=== PATIENT | female | born 1960 | race Caucasian/White ===

== ENCOUNTER → 2016-11-04 | Outpatient (CLI) | payer MEDICARE, MEDICAID ==
[~2016-11-04] MED LIST: ACET-789 PO; ACIDOPHILUS100 MG PO; AMAN100T PO; ASCO500C14 PO; BACL10TA PO; CALC-656 PO; CIPR500T78 PO; DIVA125C3 PO; LACT1CAP15 PO; LEVO125T6 PO; LEVO50TA63 PO; MELA1TAB11 PO; MELA1TAB27 PO; MELO-195 PO; MIRT45TA5 PO; MULT-974 PO; NCT21TD TD; OMEP40CA36 PO; OXYB5TAB9 PO; POLY17PO23 PO; POLYETHYLENE GLYCOL; POLYETHYLENE GLYCOL PO; SENN1TAB6 PO; SENNA PLUS PO; SERT100T8 PO; TRAM50TA2 PO; TYLENOL #3 PO; ZINC220C9 PO; [UNRECOGNIZED DRUG - CODE] PO
[2016-11-04 21:02] LABS: BILIRUBIN,URINE NEGATIVE (NEGATIVE); KETONES,URINE 2+ (NEGATIVE); LEUKOCYTE ESTERASE ,URINE 3+ (NEGATIVE); NITRITE,URINE NEGATIVE (NEGATIVE); PH,URINE 7 (5-9); PROTEIN,URINE 1+ (NEGATIVE); UROBILINOGEN,URINE NORMAL (NORMAL)
[2016-11-04 21:15] LABS: WBC,URINE 50-100 /HPF
== END ==
PROVIDERS: ATTEND Family Medicine
DX: R82.99 Other abnormal findings in urine (principal)
CPT/HCPCS: 81000; 87077; 87088; 87186

== ENCOUNTER → 2017-12-12 | Outpatient (CLI) | payer MEDICARE, MEDICAID ==
--- NOTE | 2017-12-12 12:59 | Diagnostic Imaging Report ---
PROCEDURE: CT cervical spine without contrast. TECHNIQUE: Multiple contiguous axial images were obtained through the cervical spine without the use of intravenous contrast. Sagittal and coronal reformations were then performed. INDICATION: Cervical spine fusion. No prior studies are available for comparison. There is some straightening of the normal cervical lordotic curvature. There is mild anterolisthesis of C3 on C4 with minimal retrolisthesis of C4 on C5. Severe multilevel degenerative disc disease is identified. There is disc space narrowing at all levels and marked osteophyte formation. There is osseous fusion involving the facets at C3-C4 level on the right. There is posterior instrumented fusion with vertical stabilization rods and posterior element screws extending from C5-T1. The hardware appears to be intact without fracture or loosening. There is an osseous density in the left paramidline location C3-C4, consistent with an osteophyte or ossified disc. No significant bony spinal canal stenosis is identified. The prevertebral tissues are normal. No bony fracture seen. Odontoid is intact. IMPRESSION: Severe cervical spondylosis. There are postsurgical changes, posterior instrumented fusion from C5 through T1. No hardware fracture or loosening is seen. No acute bony abnormality is detected. Dictated by: Dictated on workstation # [id number]
== END ==
LOC: RAD 12:07
PROVIDERS: ATTEND Neurological Surgery
DX: M47.812 Spondylosis without myelopathy or radiculopathy, cervical region (principal); Z98.1 Arthrodesis status
CPT/HCPCS: 72125

== ENCOUNTER → 2018-05-02 | Outpatient (CLI) | payer MEDICARE, MEDICAID ==
[~2018-05-02] MED LIST changes: +ACET325C PO; +ACET325T49 PO; +ALBU2.5V4 IH; +AMAN100C18 PO; +ARGI1POW4 PO; +ASCO500T7 PO; +CALC1CAP21 PO; +CIPR-225 PO; +CLOB15CR3 TP; +DIVA125T32 PO; +DOCU-143 PO; +ESCI20TA PO; +HYDR-3812 PO; +LACT1CAP62 PO; +LACT1CAP72 PO; +LACT1CAP76 PO; +LEVO50TA6 PO; +MAGN800O PO; +MELO15TA39 PO; +METR500T PO; +MULT-35 PO; +OXYB10TA6 PO; +POLY17PO6 PO; +SALI45SP MM; +SENN-120 PO; +ZINC220C7 PO
== END ==
LOC: WOUNDCARE 09:15
PROVIDERS: ATTEND Nurse Practitioner
DX: L89.159 Pressure ulcer of sacral region, unspecified stage (principal)
CPT/HCPCS: 99213

== ENCOUNTER 2018-05-03 09:22 | Outpatient (CLI) | payer MEDICARE, MEDICAID ==
[~2018-05-03] VITALS: Ht 162.6 cm; Wt 54.5 kg
[~2018-05-03 09:22] MED LIST changes: -ACET325C PO; -ACET325T49 PO; -ALBU2.5V4 IH; -AMAN100C18 PO; -ARGI1POW4 PO; -ASCO500T7 PO; -CALC1CAP21 PO; -CIPR-225 PO; -CLOB15CR3 TP; -DIVA125T32 PO; -DOCU-143 PO; -ESCI20TA PO; -HYDR-3812 PO; -LACT1CAP62 PO; -LACT1CAP72 PO; -LACT1CAP76 PO; -LEVO50TA6 PO; -MAGN800O PO; -MELO15TA39 PO; -METR500T PO; -MULT-35 PO; -OXYB10TA6 PO; -POLY17PO6 PO; -SALI45SP MM; -SENN-120 PO; -ZINC220C7 PO
[2018-05-03] MEDS ORDERED: LACT1CAP62 PO (13:07)
[2018-05-03] MEDS ORDERED: LACT1CAP76 PO (13:07)
[2018-05-03] MEDS ORDERED: LEVO50TA6 PO (13:07)
[2018-05-03] MEDS ORDERED: HYDR-3812 PO (13:07)
[2018-05-03] MEDS ORDERED: POLY17PO6 PO (13:07)
[2018-05-03] MEDS ORDERED: CLOB15CR3 TP (13:07)
[2018-05-03] MEDS ORDERED: ESCI20TA PO (13:07)
[2018-05-03] MEDS ORDERED: ASCO500T7 PO (13:07)
[2018-05-03] MEDS ORDERED: MELO15TA39 PO (13:07)
[2018-05-03] MEDS ORDERED: SALI45SP MM (13:07)
[2018-05-03] MEDS ORDERED: ZINC220C7 PO (13:07)
[2018-05-03] MEDS ORDERED: ACET325T49 PO (13:07)
[2018-05-03] MEDS ORDERED: MAGN800O PO (13:07)
[2018-05-03] MEDS ORDERED: DIVA125T32 PO (13:07)
[2018-05-03] MEDS ORDERED: LACT1CAP72 PO (13:07)
[2018-05-03] MEDS ORDERED: MULT-35 PO (13:07)
[2018-05-03] MEDS ORDERED: ARGI1POW4 PO (13:07)
[2018-05-03] MEDS ORDERED: SENN-120 PO (13:07)
[2018-05-03] MEDS ORDERED: DOCU-143 PO ×2 (13:07)
[2018-05-03] MEDS ORDERED: ACET325C PO (13:07)
[2018-05-03] MEDS ORDERED: AMAN100C18 PO (13:07)
[2018-05-03] MEDS ORDERED: CALC1CAP21 PO (13:07)
[2018-05-03] MEDS ORDERED: OMEP40CA36 PO (13:07)
[2018-05-03] MEDS ORDERED: OXYB10TA6 PO (13:07)
[2018-05-03] MEDS ORDERED: ALBU2.5V4 IH (13:07)
[2018-05-04] MEDS ORDERED: CIPR-225 PO (14:55)
[2018-05-04] MEDS ORDERED: METR500T PO (14:55)
== END 2018-05-03 13:18 | disposition home or self-care (01) ==
LOC: PREOP 09:22
PROVIDERS: ATTEND Surgery
DX: Z01.818 Encounter for other preprocedural examination (principal)

== ENCOUNTER 2018-05-04 10:09 | Day surgery (SDC) | payer MEDICARE, MEDICAID ==
[~2018-05-04] VITALS: Ht 162.6 cm; Wt 54.5 kg
[~2018-05-04 10:09] MED LIST changes: +ACET325C PO; +ACET325T49 PO; +ALBU2.5V4 IH; +AMAN100C18 PO; +ARGI1POW4 PO; +ASCO500T7 PO; +CALC1CAP21 PO; +CLOB15CR3 TP; +DIVA125T32 PO; +DOCU-143 PO; +ESCI20TA PO; +HYDR-3812 PO; +LACT1CAP62 PO; +LACT1CAP72 PO; +LACT1CAP76 PO; +LEVO50TA6 PO; +MAGN800O PO; +MELO15TA39 PO; +MULT-35 PO; +OXYB10TA6 PO; +POLY17PO6 PO; +SALI45SP MM; +SENN-120 PO; +ZINC220C7 PO
--- OUTSIDE RECORDS SUMMARY | 2018-05-04 10:14 | XMS REPORT | Clinical Summary ---
Author Author [facility] Organization [facility] Address Unknown Phone Unavailable Care Team Providers Care Front End Software Developer Name Role Phone Self, Referral PCP Unavailable Layla Whitfield MD Unavailable Source Comments Some departments are not documenting in the electronic medical record. If you do not see the information that you expected, contact Release of Information in the Health Information Management department at [phone] for further assistance in locating additional records.[facility] Allergies No Known Allergies Current Medications Prescription Sig. Disp. Refills Start End Date Status Date levothyroxine (SYNTHROID) Take 50 mcg by mouth Active 50 mcg tabletIndications: daily. Indications: hypothyroidism HYPOTHYROIDISM LACTOBACILLUS ACIDOPHILUS Take by mouth daily. Active (ACIDOPHILUS PO) amantadine HCl Take 100 mg by mouth Active (SYMMETREL) 100 mg twice daily. capsule meloxicam (MOBIC) 7.5 mg Take 15 mg by mouth Active tabletIndications: muscle daily. Indications: spasms, spinal injuries muscle spasms, spinal injuries omeprazole DR(+) Take 40 mg by mouth Active (PRILOSEC) 40 mg daily. Indications: capsuleIndications: GASTROESOPHAGEAL REFLUX gastroesophageal reflux disease CALCIUM CARBONATE/VITAMIN Take by mouth daily. Active D2 (CALCIUM + VITAMIN D PO) polyethylene glycol 3350 Take 17 g by mouth daily. Active (GLYCOLAX; MIRALAX) 17 Indications: CONSTIPATION gram/dose powderIndications: constipation escitalopram oxalate Take 20 mg by mouth Active (LEXAPRO) 20 mg daily. Indications: tabletIndications: ANXIETY WITH DEPRESSION Anxiety with Depression traMADol (ULTRAM) 50 mg Take 50 mg by mouth every Active tabletIndications: Pain 6 hours as needed for Pain. Indications: PAIN divalproex (DEPAKOTE Take 125 mg by mouth Active SPRINKLE) 125 mg three times daily. capsuleIndications: Indications: depression depression and behaviors and behaviors mirtazapine (REMERON) 45 Take 45 mg by mouth at Active mg tabletIndications: bedtime daily. sleep Indications: sleep senna/docusate Take 1 Tab by mouth Active (SENOKOT-S) 8.6/50 mg daily. Indications: tabletIndications: CONSTIPATION constipation oxybutynin XL (DITROPAN Take 10 mg by mouth Active XL) 10 mg daily. 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 She previously had a suprapubic tube; this was removed in 2011 after she began to void regularly through her urethra. However, SPT site opened in 2012 and continues to drain. PVR was elevated at 230 mls today and persistent bladder distention is likely cause of persistence of spt tract. However, we will need to rule out a foreign body or any other abnormalities to explain persistent opening. 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 Overview: Neurogenic bladder secondary to SCI in 2010, previously managed with SP tube SP tube removed in 2011, site reopened and began to drain urine in 2012 CT cystogram showed channel connecting bladder to anterior abdominal wall, which filled with contrast L ast Assessment & Plan: - See plan for neurogenic bladder Social History Tobacco Use Types Packs/Day Years Used Date Current Every Day Smoker Cigarettes Tobacco Cessation: Ready to Quit: No; Counseling Given: Yes Alcohol Use Drinks/Week oz/Week Comments No 0 Standard 0.0 past abuse states quit 2010 drinks or equivalent Sex Assigned at Date Recorded Not on file Last Filed Vital Signs Vital Sign Reading Time Taken Blood Pressure 116/70 12/15/2015 4:11 PM CDT Pulse 72 12/15/2015 4:11 PM CDT Temperature - - Respiratory Rate 16 12/15/2015 4:11 PM CDT Oxygen Saturation - - Inhaled Oxygen - - Concentration Weight 68 kg (150 lb) 12/15/2015 4:11 PM CDT Height 162.6 cm (5' 4") 12/15/2015 4:11 PM CDT Body Mass Index 25.75 12/15/2015 4:11 PM CDT Plan of Treatment Health Maintenance Due Date Last Done Comments HEPATITIS C SCREENING 1962 PHYSICAL (COMPREHENSIVE) 1969 EXAM PERTUSSIS VACCINE 1973 HIV SCREENING 1977 TETANUS VACCINE 10/14/1979 CERVICAL CANCER SCREENING 1992 BREAST CANCER SCREENING 2002 COLORECTAL CANCER 2012 SCREENING SHINGLES RECOMBINANT 2012 VACCINE (1 of 2) INFLUENZA VACCINE 02/22/2018 Results Not on filefrom Last 3 Months
[2018-05-04 10:15] VITALS: BP 130/95
--- OUTSIDE RECORDS SUMMARY | 2018-05-04 10:15 | XMS REPORT ---
Author Author Ender Gutierrez Organization [facility] Address [address] [place], [place] [id number] Care Team Providers Care Junior Systems Engineer Name Role Phone Ender Gutierrez PCP Allergies and Adverse Reactions Name Reaction Notes NO KNOWN DRUG ALLERGIES Plan of Treatment Not available. Medications Active Name Start Date Estimated Completion Date SIG Comments levothyroxine 50 mcg oral tablet take 1 tablet (50 mcg) by oral route once daily Acidophilus oral capsule take 1 capsule by oral route daily meloxicam 15 mg oral tablet take 1 tablet (15 mg) by oral route once daily omeprazole 40 mg oral capsule,delayed release(DR/EC) take 1 capsule (40 mg) by oral route once daily before a meal in combination with clarithromycin oxybutynin chloride 5 mg oral tablet take 1 tablet by oral route daily Calcium 500 + D 500 mg(1,250mg) -200 unit oral tablet take 1 tablet by oral route daily sertraline 100 mg oral tablet take 1 tablet (100 mg) by oral route once daily Depakote 125 mg oral tablet,delayed release (DR/EC) take 1 tablet (125 mg) by oral route 3 times per day Tylenol Extra Strength 500 mg oral tablet take 2 tablets (1,000 mg) by oral route every 6 hours as needed melatonin 5 mg oral tablet take 1 tablet by oral route once a day (at bedtime) tramadol 50 mg oral tablet take 1 tablet by oral route 2 times a day as needed Lioresal 500 mcg/mL intrathecal solution 04/24/2018 06/23/2018 Pump refill for simple continuous infusion at 310.34 mcg/day for intrathecal use only for 60 days Problem List Description Status Onset 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 Vital Signs Date Time BP-Sys(mm[Hg] BP-Laury(mm[Hg]) HR(bpm) RR(rpm) Temp WT HT HC BMI BSA BMI Percentile O2 Sat(%) 05/04/2018 8:37:00 AM 120 mmHg 60 mmHg 82 bpm 98.1 F 64 in 95 % 03/16/2018 9:20:00 AM 126 mmHg 68 mmHg 57 bpm 97.5 F 117 lbs 64 in 20.08 kg/m2 1.55 m2 97 % 12/01/2017 2:27:00 PM 118 mmHg 64 mmHg 58 bpm 98.1 F 111 lbs 64 in 19.0529 kg/m 1.5078 m 96 % 09/29/2017 10:40:00 AM 130 mmHg 60 mmHg 80 bpm 97.8 F 64 in 95 % 08/03/2017 4:35:00 PM 122 mmHg 64 mmHg 68 bpm 96 F 96 % 06/08/2017 10:05:00 AM 122 mmHg 72 mmHg 59 bpm 18 rpm 96.4 F 97 % 04/14/2017 1:18:00 PM 90 mmHg 60 mmHg 66 bpm 20 rpm 97.3 F 97 % 02/24/2017 10:53:00 AM 126 mmHg 78 mmHg 84 bpm 18 rpm 97.2 F 96 % 12/27/2016 9:51:00 AM 126 mmHg 72 mmHg 73 bpm 17 rpm 97.8 F 95 % 10/28/2016 11:32:00 AM 118 mmHg 64 mmHg 73 bpm 12 rpm 97.3 F 95 % 09/23/2016 11:25:00 AM 112 mmHg 80 mmHg 72 bpm 14 rpm 96.7 F 98 % 07/29/2016 11:03:00 AM 128 mmHg 64 mmHg 86 bpm 14 rpm 97.1 F 96 % 06/10/2016 11:42:00 AM 132 mmHg 68 mmHg 76 bpm 14 rpm 97.5 F 95 % 04/22/2016 11:25:00 AM 132 mmHg 76 mmHg 95 bpm 16 rpm 97 F 96 % 02/26/2016 3:14:00 PM 130 mmHg 78 mmHg 70 bpm 14 rpm 97.3 F 95 % 01/15/2016 9:58:00 AM 124 mmHg 76 mmHg 84 bpm 20 rpm 97.5 F 98 % 11/20/2015 10:12:00 AM 132 mmHg 78 mmHg 80 bpm 20 rpm 97.9 F 97 % 09/25/2015 10:54:00 AM 102 mmHg 52 mmHg 78 bpm 16 rpm 97.1 F 07/31/2015 1:21:00 PM 114 mmHg 62 mmHg 76 bpm 16 rpm 98.3 F 06/03/2015 10:52:00 AM 132 mmHg 78 mmHg 76 bpm 18 rpm 97.4 F 145 lbs 64 in 24.8889 kg/m 1.7234 m 04/08/2015 10:20:00 AM 108 mmHg 64 mmHg 84 bpm 16 rpm 97.6 F 145 lbs 64 in 24.89 kg/m2 1.72 m2 02/11/2015 11:30:00 AM 104 mmHg 68 mmHg 18 rpm 97.5 F 140 lbs 64.5 in 23.6596 kg/m 1.7 m 12/17/2014 9:24:00 AM 120 mmHg 76 mmHg 65 bpm 18 rpm 96 F 125 lbs 64 in 21.46 kg/m2 1.60 m2 10/18/2014 10:32:00 AM 114 mmHg 62 mmHg 74 bpm 16 rpm 97.5 F 08/23/2014 9:58:00 AM 122 mmHg 70 mmHg 76 bpm 16 rpm 97.2 F 08/15/2014 1:37:00 PM 104 mmHg 64 mmHg 78 bpm 18 rpm 97.4 F 145 lbs 64 in 24.8889 kg/m 1.7234 m Social History Name Description Comments Alcohol Never Tobacco Current every day smoker History of Procedures Date Ordered Description Order Status 06/03/2015 12:00 AM ANL SP INF DIRECTOR MEDICAID W/MDREPRG&AYSHA Reviewed 06/03/2015 12:00 AM Baclofen, 10 Mg [facility]# [address]-03 Reviewed 07/31/2015 12:00 AM ANL SP INF DIRECTOR MEDICAID W/MDREPRG&AYSHA Reviewed 07/31/2015 12:00 AM Baclofen, 10 Mg [facility]# [address]-98 Reviewed 09/25/2015 12:00 AM ANL SP INF DIRECTOR MEDICAID W/MDREPRG&AYSHA Reviewed 04/14/2017 12:00 AM MRI UPPER EXTREMITY W/O DYE Returned 04/14/2017 12:00 AM ANL SP INF DIRECTOR MEDICAID W/MDREPRG&AYSHA Reviewed 06/08/2017 12:00 AM ANL SP INF DIRECTOR MEDICAID W/MDREPRG&AYSHA Reviewed 08/03/2017 12:00 AM ANL SP INF DIRECTOR MEDICAID W/MDREPRG&AYSHA Reviewed 09/29/2017 12:00 AM ANL SP INF DIRECTOR MEDICAID W/MDREPRG&AYSHA Reviewed 12/01/2017 12:00 AM ANL SP INF DIRECTOR MEDICAID W/MDREPRG&AYSHA Reviewed 03/16/2018 12:00 AM ANL SP INF DIRECTOR MEDICAID W/MDREPRG&AYSHA Reviewed 02/11/2015 12:00 AM ANL SP INF DIRECTOR MEDICAID W/MDREPRG&AYSHA Reviewed 02/11/2015 12:00 AM Baclofen, 10 Mg [facility] [place]# [address]-66 Reviewed Results Summary Not available. History Of Immunizations Not available. History of Past Illness Name Date of Onset Comments Paraplegia Spasticity of cerebral origin 08/23/2014 Spastic quadriplegia 08/23/2014 Late effect of intracranial injury 08/23/2014 Spasticity of cerebral origin Aug 23 2014 10:01AM Spastic quadriplegia Aug 23 2014 10:01AM Late effect of intracranial injury Aug 23 2014 10:01AM Spasticity of cerebral origin Oct 18 2014 10:34AM Spastic quadriplegia Oct 18 2014 10:34AM Late effect of intracranial injury Oct 18 2014 10:34AM Spasticity of cerebral origin Dec 17 2014 9:26AM Spastic quadriplegia Dec 17 2014 9:26AM Late effect of intracranial injury Dec 17 2014 9:26AM Spasticity of cerebral origin Feb 11 2015 11:30AM Spastic quadriplegia Feb 11 2015 11:30AM Late effect of intracranial injury Feb 11 2015 11:30AM Spasticity of cerebral origin Apr 08 2015 10:26AM Spastic quadriplegia Apr 08 2015 10:26AM Late effect of intracranial injury Apr 08 2015 10:26AM Spastic quadriplegia Jun 03 2015 10:53AM Late effect of intracranial injury Jun 03 2015 10:53AM Spastic quadriplegia Jul 31 2015 1:22PM Late effect of intracranial injury Jul 31 2015 1:22PM Spastic quadriplegia Sep 25 2015 10:56AM Late effect of intracranial injury Sep 25 2015 10:56AM Spastic quadriplegia Nov 20 2015 10:12AM Late effect of intracranial injury Nov 20 2015 10:12AM Spastic quadriplegia Jan 15 2016 9:58AM Late effect of intracranial injury Jan 15 2016 9:58AM Spastic quadriplegia Feb 26 2016 3:16PM Late effect of intracranial injury Feb 26 2016 3:16PM Spastic quadriplegia Apr 22 2016 11:27AM Late effect of intracranial injury Apr 22 2016 11:27AM Spastic quadriplegia Nov 17 2016 11:44AM Late effect of intracranial injury Jun 10 2016 11:44AM Spastic quadriplegia Jul 29 2016 11:05AM Late effect of intracranial injury Jul 29 2016 11:05AM Spastic quadriplegia Sep 23 2016 11:23AM Late effect of intracranial injury Sep 23 2016 11:23AM H/O traumatic brain injury Aug 15 2014 1:41PM Late effect of intracranial injury Aug 15 2014 1:41PM Spastic quadriplegia Aug 15 2014 1:41PM Spastic quadriplegia Oct 28 2016 10:40AM Late effect of intracranial injury Oct 28 2016 10:40AM Spastic quadriplegia Dec 27 2016 9:41AM Late effect of intracranial injury Dec 27 2016 9:41AM Spastic quadriplegia Feb 24 2017 10:41AM Late effect of intracranial injury Feb 24 2017 10:41AM Biceps muscle strain, right, initial encounter Apr 14 2017 1:21PM Traumatic brain injury Apr 14 2017 1:21PM Spasticity Apr 14 2017 1:21PM Late effect of intracranial injury Jun 08 2017 10:08AM Spastic quadriplegia Jun 08 2017 10:08AM Spasticity of cerebral origin Jun 08 2017 10:08AM Late effect of intracranial injury Aug 03 2017 4:37PM Spastic quadriplegia Aug 03 2017 4:37PM Spasticity of cerebral origin Aug 03 2017 4:37PM Late effect of intracranial injury Sep 29 2017 10:42AM Spastic quadriplegia Sep 29 2017 10:42AM Spasticity of cerebral origin Sep 29 2017 10:42AM Late effect of intracranial injury Dec 01 2017 2:29PM Spastic quadriplegia Dec 01 2017 2:29PM Spasticity of cerebral origin Dec 01 2017 2:29PM Late effect of intracranial injury Mar 16 2018 9:22AM Spastic quadriplegia Mar 16 2018 9:22AM Spasticity of cerebral origin Mar 16 2018 9:22AM Other specified complication of other internal prosthetic devices, implants and grafts, initial encounter Mar 16 2018 9:22AM Pressure ulcer of unspecified site, unspecified stage Mar 16 2018 9:22AM Late effect of intracranial injury May 04 2018 8:39AM Spastic quadriplegia May 04 2018 8:39AM Spasticity of cerebral origin May 04 2018 8:39AM Other specified complication of other internal prosthetic devices, implants and grafts, initial encounter May 04 2018 8:39AM Pressure ulcer of unspecified site, unspecified stage May 04 2018 8:39AM Payers Insurance Name Company Name Plan Name Plan Number Policy Number Policy Group Number Start Date Medicare Part B Medicare [place] [id number] November [facility] [id number] N/A Medicare [facility] Medicare [facility] [id number] N/A [facility] - [facility] [id number] N/A Medicare Part A Medicare - Lab/Xray [id number] N/A History of Encounters Visit Date Visit Type Provider 05/04/2018 Procedures Ender Gutierrez DO 03/16/2018 Procedures Ender Gutierrez DO 12/01/2017 Procedures Ender Gutierrez DO 09/29/2017 Procedures Ender Gutierrez DO 08/03/2017 Procedures Ender Gutierrez DO 06/08/2017 Procedures Ender Gutierrez DO 04/18/2017 Nurse visit Ender Gutierrez DO 04/14/2017 Procedures Ender Gutierrez DO 02/24/2017 Procedures Lala CONWAY 12/27/2016 Procedures Lala ZHANGP 10/28/2016 Procedures Lala ZHANGP 09/23/2016 Procedures Lala ZHANGP 07/29/2016 Procedures Lala ZHANGP 06/10/2016 Procedures Lala ZHANGP 04/22/2016 Procedures Lala ZHANGP 02/26/2016 Procedures Lala ZHANGP 01/15/2016 Procedures Lala ZHANGP 11/20/2015 Procedures Lala ZHANGP 09/25/2015 Procedures Lala ZHANGP 07/31/2015 Procedures Lala ZHANGP 06/03/2015 Procedures Lala ZHANGP 04/08/2015 Procedures Lala ZHANGP 02/11/2015 Procedures Lala ZHANGP 12/17/2014 Procedures Lala ZHANGP 10/18/2014 Procedures Lala ZHANGP 08/23/2014 Procedures Lala ZHANGP 08/15/2014 Office visit Lala CONWAY
--- OUTSIDE RECORDS SUMMARY | 2018-05-04 10:15 | XMS REPORT ---
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 Vital Signs Date Time BP-Sys(mm[Hg] BP-Lauyr(mm[Hg]) HR(bpm) RR(rpm) Temp WT HT HC BMI BSA BMI Percentile O2 Sat(%) 06/08/2017 10:05:00 AM 122 mmHg 72 mmHg [...] rpm 97.4 F 145 lbs 64 in 24.89 kg/m2 1.72 m2 04/08/2015 10:20:00 AM 108 mmHg 64 mmHg 84 bpm 16 rpm 97.6 F 145 lbs 64 in 24.8889 kg/m 1.7234 m 02/11/2015 11:30:00 AM 104 mmHg 68 mmHg 18 rpm 97.5 F 140 lbs 64.5 in 23.66 kg/m2 1.70 m2 12/17/2014 9:24:00 AM 120 mmHg 76 mmHg 65 bpm 18 rpm 96 F 125 lbs 64 in 21.456 kg/m 1.6001 m 10/18/2014 10:32:00 AM 114 mmHg 62 mmHg 74 bpm 16 rpm 97.5 F 08/23/2014 9:58:00 AM 122 mmHg 70 mmHg 76 bpm 16 rpm 97.2 F 08/15/2014 1:37:00 PM 104 mmHg 64 mmHg 78 bpm 18 rpm 97.4 F 145 lbs 64 in 24.89 kg/m2 1.72 m2 Social History Not available. History of Procedures Date Ordered Description Order Status 06/03/2015 12:00 AM ANL SP INF STITCHDOWNS TOE FORMER W/MDREPRG&AYSHA Reviewed 06/03/2015 12:00 AM Baclofen, 10 Mg [facility]# [address]-84 Reviewed 07/31/2015 12:00 AM ANL SP INF STITCHDOWNS TOE FORMER W/MDREPRG&AYSHA Reviewed 07/31/2015 12:00 AM Baclofen, 10 Mg [facility]# [address]-49 Reviewed 09/25/2015 12:00 AM ANL SP INF STITCHDOWNS TOE FORMER W/MDREPRG&AYSHA Reviewed 04/14/2017 12:00 AM MRI UPPER EXTREMITY W/O DYE Returned 04/14/2017 12:00 AM ANL SP INF STITCHDOWNS TOE FORMER W/MDREPRG&AYSHA Reviewed 02/11/2015 12:00 AM ANL SP INF STITCHDOWNS TOE FORMER W/MDREPRG&AYSHA Reviewed 02/11/2015 12:00 AM Baclofen, 10 Mg [facility]# [address]-93 Reviewed Results Summary Not available. History Of [...] injury Apr 22 2016 11:27AM Spastic quadriplegia Jun 10 2016 11:44AM Late effect of intracranial injury [...] of cerebral origin Jun 08 2017 10:08AM Payers Insurance Name Company Name Plan Name Plan Number Policy Number Policy Group Number Start Date Medicare Part B Medicare [place] [id number] November [facility] [id number] N/A Medicare [facility] Medicare [facility] [id number] N/A [facility] [id number] N/A Medicare Part A Medicare - Lab/Xray [id number] N/A History of Encounters Visit Date Visit Type Provider 06/08/2017 Procedures [facility] 04/18[facility] 02/24/2017 Procedures Lala CONWAY 12/27/2016 Procedures Lala CONWAY 10/28/2016 Procedures Lala CONWAY 09/23/2016 Procedures Lala CONWAY 07/29/2016 Procedures Lala CONWAY 06/10/2016 Procedures Lala CONWAY 04/22/2016 Procedures Lala CONWAY 02/26/2016 Procedures Lala CONWAY 01/15/2016 Procedures Lala CONWAY 11/20/2015 Procedures Lala ZHANGP 09/25/2015 Procedures Lala ZHANGP 07/31/2015 Procedures Lala CONWAY 06/03/2015 Procedures Lala CONWAY 04/08/2015 Procedures Lala CONWAY 02/11/2015 Procedures Lala CONWAY 12/17/2014 Procedures Lala CONWAY 10/18/2014 Procedures Lala CONWAY 08/23/2014 Procedures Lala CONWAY 08/15/2014 Office visit Lala CONWAY
--- OUTSIDE RECORDS SUMMARY | 2018-05-04 10:15 | XMS REPORT ---
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 Vital Signs Date Time BP-Sys(mm[Hg] BP-Laury(mm[Hg]) HR(bpm) RR(rpm) Temp WT HT HC BMI BSA BMI Percentile O2 Sat(%) 03/16/2018 9:20:00 AM 126 mmHg 68 mmHg 57 bpm 97.5 F 117 lbs 64 in 20.0828 kg/m 1.548 m 97 % 12/01/2017 2:27:00 PM 118 mmHg 64 mmHg 58 bpm 98.1 F 111 lbs 64 in 19.05 kg/m2 1.51 m2 96 % 09/29/2017 10:40:00 AM 130 mmHg [...] Status 06/03/2015 12:00 AM ANL SP INF TRUST EVALUATION SUPERVISOR W/MDREPRG&AYSHA Reviewed 06/03/2015 12:00 AM Baclofen, 10 Mg [facility]# [address]-10 Reviewed 07/31/2015 12:00 AM ANL SP INF TRUST EVALUATION SUPERVISOR W/MDREPRG&AYSHA Reviewed 07/31/2015 12:00 AM Baclofen, 10 Mg [facility]# [address]-91 Reviewed 09/25/2015 12:00 AM ANL SP INF TRUST EVALUATION SUPERVISOR W/MDREPRG&AYSHA Reviewed 04/14/2017 12:00 AM MRI UPPER EXTREMITY W/O DYE Returned 04/14/2017 12:00 AM ANL SP INF TRUST EVALUATION SUPERVISOR W/MDREPRG&AYSHA Reviewed 06/08/2017 12:00 AM ANL SP INF TRUST EVALUATION SUPERVISOR W/MDREPRG&AYSHA Reviewed 08/03/2017 12:00 AM ANL SP INF TRUST EVALUATION SUPERVISOR W/MDREPRG&AYSHA Reviewed 09/29/2017 12:00 AM ANL SP INF TRUST EVALUATION SUPERVISOR W/MDREPRG&AYSHA Reviewed 12/01/2017 12:00 AM ANL SP INF TRUST EVALUATION SUPERVISOR W/MDREPRG&AYSHA Reviewed 02/11/2015 12:00 AM ANL SP INF TRUST EVALUATION SUPERVISOR W/MDREPRG&AYSHA Reviewed 02/11/2015 12:00 AM Baclofen, 10 Mg [facility]# [address]-63 Reviewed Results Summary Not available. History Of [...] site, unspecified stage Mar 16 2018 9:22AM Payers Insurance Name Company Name Plan Name Plan Number Policy Number Policy Group Number Start Date Medicare Part B Medicare [place] [id number] November [facility] [id number] N/A Medicare R[facility] Medicare R[facility] [id number] N/A [facility] - [facility] [id number] N/A Medicare Part A Medicare - Lab/Xray [id number] N/A History of Encounters Visit Date Visit Type Provider 03/16/2018 Procedures Ender Gutierrez DO 12/01/2017 Procedures Ender Gutierrez DO 09/29/2017 Procedures Ender Gutierrez DO 08/03/2017 Procedures Ender Gutierrez DO 06/08/2017 Procedures Ender Gutierrez DO 04/18/2017 Nurse visit Ender Gutierrez DO 04/14/2017 Procedures Ender Gutierrez DO 02/24/2017 Procedures Lala CONWAY 12/27/2016 Procedures Lala CONWAY 10/28/2016 Procedures Lala ZHANGP 09/23/2016 Procedures Lala CONWAY 07/29/2016 Procedures Lala CONWAY 06/10/2016 Procedures Lala CONWAY 04/22/2016 Procedures Lala CONWAY 02/26/2016 Procedures Lala CONWAY 01/15/2016 Procedures Lala CONWAY 11/20/2015 Procedures Lala CONWAY 09/25/2015 Procedures Lala CONWAY 07/31/2015 Procedures Lala ZHANGP 06/03/2015 Procedures Lala CONWAY 04/08/2015 Procedures Lala CONWAY 02/11/2015 Procedures Lala CONWAY 12/17/2014 Procedures Lala CONWAY 10/18/2014 Procedures Lala CONWAY 08/23/2014 Procedures Lala CONWAY 08/15/2014 Office visit Lala CONWAY
--- OUTSIDE RECORDS SUMMARY | 2018-05-04 10:16 | XMS REPORT ---
Author Author [facility] Organization [facility] Address [address] [place], [place] [id number] Care Team Providers Care Needle Grinder Name Role Phone PCP Unavailable Allergies and Adverse Reactions Name Reaction Notes NO KNOWN DRUG ALLERGIES Plan of Treatment Not available. Medications Active Name Start Date Estimated Completion Date SIG Comments levothyroxine oral tablet 50 mcg take 1 tablet (50 mcg) by oral route once daily Acidophilus oral capsule take 1 capsule by oral route daily meloxicam oral tablet 15 mg take 1 tablet (15 mg) by oral route once daily omeprazole oral capsule,delayed release(DR/EC) 40 mg take 1 capsule (40 mg) by oral route once daily before a meal in combination with clarithromycin oxybutynin chloride oral tablet 5 mg take 1 tablet by oral route daily Calcium 500 + D oral tablet 500 mg(1,250mg) -200 unit take 1 tablet by oral route daily sertraline oral tablet 100 mg take 1 tablet (100 mg) by oral route once daily Depakote oral tablet,delayed release (DR/EC) 125 mg take 1 tablet (125 mg) by oral route 3 times per day Tylenol Extra Strength oral tablet 500 mg take 2 tablets (1,000 mg) by oral route every 6 hours as needed melatonin oral tablet 5 mg take 1 tablet by oral route once a day (at bedtime) tramadol oral tablet 50 mg take 1 tablet by oral route 2 times a day as needed Lioresal intrathecal solution 500 mcg/mL 12/17/2014 Pump refill for simple continuous infusion at 300.39mcg/day for intrathecal use only Problem List Description Status Onset 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 History of Procedures Not available. Results Summary Not available. History Of Immunizations [...] of intracranial injury Dec 17 2014 9:26AM Payers Insurance Name Company Name Plan Name Plan Number Policy Number Policy Group Number Start Date Medicare Part B Medicare Of [place] [id number] November [facility] [id number] N/A History of Encounters Visit Date Visit Type Provider 12/17/2014 Procedures Lala CONWAY 10/18/2014 Procedures Lala CONWAY 08/23/2014 Procedures Lala CONWAY 08/15/2014 Office visit Lala CONWAY
--- OUTSIDE RECORDS SUMMARY | 2018-05-04 10:16 | XMS REPORT ---
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 Vital Signs Date Time BP-Sys(mm[Hg] BP-Laury(mm[Hg]) HR(bpm) RR(rpm) Temp WT HT HC BMI BSA BMI Percentile O2 Sat(%) 12/01/2017 2:27:00 PM 118 mmHg 64 mmHg [...] Status 06/03/2015 12:00 AM ANL SP INF METAL BOX MAKER W/MDREPRG&AYSHA Reviewed 06/03/2015 12:00 AM Baclofen, 10 Mg [facility]# [address]-49 Reviewed 07/31/2015 12:00 AM ANL SP INF METAL BOX MAKER W/MDREPRG&AYSHA Reviewed 07/31/2015 12:00 AM Baclofen, 10 Mg ND# [address]-24 Reviewed 09/25/2015 12:00 AM ANL SP INF METAL BOX MAKER W/MDREPRG&AYSHA Reviewed 04/14/2017 12:00 AM MRI UPPER EXTREMITY W/O DYE Returned 04/14/2017 12:00 AM ANL SP INF METAL BOX MAKER W/MDREPRG&AYSHA Reviewed 06/08/2017 12:00 AM ANL SP INF METAL BOX MAKER W/MDREPRG&AYSHA Reviewed 08/03/2017 12:00 AM ANL SP INF METAL BOX MAKER W/MDREPRG&AYSHA Reviewed 09/29/2017 12:00 AM ANL SP INF METAL BOX MAKER W/MDREPRG&AYSHA Reviewed 02/11/2015 12:00 AM ANL SP INF METAL BOX MAKER W/MDREPRG&AYSHA Reviewed 02/11/2015 12:00 AM Baclofen, 10 Mg [facility]# [address]-76 Reviewed Results Summary Not available. History Of [...] of cerebral origin Dec 01 2017 2:29PM Payers Insurance Name Company Name Plan Name Plan Number Policy Number Policy Group Number Start Date Medicare Part B Medicare Of [place] [id number] November [facility] [id number] N/A Medicare RHC Medicare RHC [id number] N/A [facility] [id number] N/A Medicare Part A Medicare - Lab/Xray [id number] N/A History of Encounters Visit Date Visit Type Provider 12/01/2017 Procedures Ender Gutierrez DO 09/29/2017 Procedures Ender Gutierrez DO 08/03/2017 Procedures Ender Gutierrez DO 06/08/2017 Procedures Ender Gutierrez DO 04/18/2017 Nurse visit Ender Gutierrez DO 04/14/2017 Procedures Ender Gutierrez DO 02/24/2017 Procedures Lala ZHANGP 12/27/2016 Procedures Lala ZHANGP 10/28/2016 Procedures Lala [...] Procedures Lala ZHANGP 08/15/2014 Office visit Lala ZHANGP
--- OUTSIDE RECORDS SUMMARY | 2018-05-04 10:16 | XMS REPORT ---
Author Author Ender Gutierrez Organization [facility] Address [address] [place], [place] [phone] Care Team Providers Care Service Unit Operator Oil Well Name Role Phone Ender Gutierrez PCP Allergies and Adverse Reactions Name Reaction Notes NO KNOWN DRUG ALLERGIES Plan of Treatment Planned Activity Comments Planned Date Planned Time Plan/Goal MRI UPPER EXT OTH THAN JOINT W/O CONTRAS 04/14/2017 12:00 AM Medications Active Name Start Date Estimated Completion [...] as needed Lioresal 500 mcg/mL intrathecal solution 03/21/2017 Pump refill for simple continuous infusion at 310.34 mcg/day for intrathecal use only Problem List Description Status Onset 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 Vital Signs Date Time BP-Sys(mm[Hg] BP-Laury(mm[Hg]) HR(bpm) RR(rpm) Temp WT HT HC BMI BSA BMI Percentile O2 Sat(%) 04/14/2017 1:18:00 PM 90 mmHg 60 mmHg [...] Status 06/03/2015 12:00 AM ANL SP INF BLOOD BANK LABORATORY PROFESSIONAL W/MDREPRG&AYSHA Reviewed 06/03/2015 12:00 AM Baclofen, 10 Mg [facility]# [address]-40 Reviewed 07/31/2015 12:00 AM ANL SP INF BLOOD BANK LABORATORY PROFESSIONAL W/MDREPRG&AYSHA Reviewed 07/31/2015 12:00 AM Baclofen, 10 Mg NDC# [address]-12 Reviewed 09/25/2015 12:00 AM ANL SP INF BLOOD BANK LABORATORY PROFESSIONAL W/MDREPRG&AYSHA Reviewed 02/11/2015 12:00 AM ANL SP INF BLOOD BANK LABORATORY PROFESSIONAL W/MDREPRG&AYSHA Reviewed 02/11/2015 12:00 AM Baclofen, 10 Mg ND# [address]-90 Reviewed Results Summary Not available. History Of [...] 2017 1:21PM Spasticity Apr 14 2017 1:21PM Payers Insurance Name Company Name Plan Name Plan Number Policy Number Policy Group Number Start Date Medicare Part B Medicare Of [place] [id number] November [facility] [id number] N/A Medicare RHC Medicare RHC [id number] N/A [facility] [id number] N/A Medicare Part A Medicare - Lab/Xray [id number] N/A History of Encounters Visit Date Visit Type Provider 04/14/2017 Procedures Ender Gutierrez DO 02/24/2017 Procedures [...]
--- OUTSIDE RECORDS SUMMARY | 2018-05-04 10:17 | XMS REPORT ---
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 Vital Signs Date Time BP-Sys(mm[Hg] BP-Laury(mm[Hg]) HR(bpm) RR(rpm) Temp WT HT HC BMI BSA BMI Percentile O2 Sat(%) 09/23/2016 11:25:00 AM 112 mmHg 80 mmHg [...] Status 06/03/2015 12:00 AM ANL SP INF ENVIRONMENTAL AIR SPECIALIST W/MDREPRG&AYSHA Reviewed 06/03/2015 12:00 AM Baclofen, 10 Mg [facility]# [address]-33 Reviewed 07/31/2015 12:00 AM ANL SP INF ENVIRONMENTAL AIR SPECIALIST W/MDREPRG&AYSHA Reviewed 07/31/2015 12:00 AM Baclofen, 10 Mg [facility]# [address]-98 Reviewed 09/25/2015 12:00 AM ANL SP INF ENVIRONMENTAL AIR SPECIALIST W/MDREPRG&AYSHA Reviewed 02/11/2015 12:00 AM ANL SP INF ENVIRONMENTAL AIR SPECIALIST W/MDREPRG&AYSHA Reviewed 02/11/2015 12:00 AM Baclofen, 10 Mg [facility]# [address]-03 Reviewed Results Summary Not available. History Of [...] 1:41PM Spastic quadriplegia Aug 15 2014 1:41PM Payers Insurance Name Company Name Plan Name Plan Number Policy Number Policy Group Number Start Date Medicare RHC Medicare RHC [id number] N/A [facility] [id number] N/A Medicare Part A Medicare - Lab/Xray [id number] N/A [facility] [id number] N/A Medicare Part B Medicare Of [place] [id number] November History of Encounters Visit Date Visit Type Provider 09/23/2016 Procedures Lala CONWAY 07/29/2016 Procedures Lala CONWAY 06/10/2016 Procedures Lala CONWAY 04/22/2016 Procedures Lala CONWAY 02/26/2016 Procedures Lala CONWAY 01/15/2016 Procedures Lala CONWAY 11/20/2015 Procedures Lala CONWAY 09/25/2015 Procedures Lala ZHANGP 07/31/2015 Procedures Lala ZHANGP 06/03/2015 Procedures Lala CONWAY 04/08/2015 Procedures Lala CONWAY 02/11/2015 Procedures Lala CONWAY 12/17/2014 Procedures Lala CONWAY 10/18/2014 Procedures Lala CONWAY 08/23/2014 Procedures Lala CONWAY 08/15/2014 Office visit Lala CONWAY
--- OUTSIDE RECORDS SUMMARY | 2018-05-04 10:17 | XMS REPORT ---
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 History Of Immunizations [...] of intracranial injury Apr 08 2015 10:26AM Payers Insurance Name Company Name Plan Name Plan Number Policy Number Policy Group Number Start Date Medicare Part B Medicare Of [place] [id number] November [facility] [id number] N/A History of Encounters Visit Date Visit Type Provider 04/08/2015 Procedures Lala CONWAY 02/11/2015 Procedures Lala CONWAY 12/17/2014 Procedures Lala CONWAY 10/18/2014 Procedures Lala CONWAY 08/23/2014 Procedures Lala CONWAY 08/15/2014 Office visit Lala CONWAY
--- OUTSIDE RECORDS SUMMARY | 2018-05-04 10:17 | XMS REPORT ---
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 Vital Signs Date Time BP-Sys(mm[Hg] BP-Laury(mm[Hg]) HR(bpm) RR(rpm) Temp WT HT HC BMI BSA BMI Percentile O2 Sat(%) 06/10/2016 11:42:00 AM 132 mmHg 68 mmHg [...] Status 06/03/2015 12:00 AM ANL SP INF STEEL WHEEL ENGRAVER W/MDREPRG&AYSHA Reviewed 06/03/2015 12:00 AM Baclofen, 10 Mg [facility]# [address]-47 Reviewed 07/31/2015 12:00 AM ANL SP INF STEEL WHEEL ENGRAVER W/MDREPRG&AYSHA Reviewed 07/31/2015 12:00 AM Baclofen, 10 Mg [facility]# [address]-40 Reviewed 09/25/2015 12:00 AM ANL SP INF STEEL WHEEL ENGRAVER W/MDREPRG&AYSHA Reviewed 02/11/2015 12:00 AM ANL SP INF STEEL WHEEL ENGRAVER W/MDREPRG&AYSHA Returned 02/11/2015 12:00 AM Baclofen, 10 Mg [facility]# [address]-71 Returned Results Summary Not available. History Of [...] of intracranial injury Jun 10 2016 11:44AM Payers Insurance Name Company Name Plan Name Plan Number Policy Number Policy Group Number Start Date Medicare Part B Medicare Of [place] [id number] November [facility] [id number] N/A History of Encounters Visit Date Visit Type Provider 06/10/2016 Procedures Lala CONWAY 04/22/2016 Procedures Lala CONWAY 02/26/2016 Procedures Lala ZHANGP 01/15/2016 Procedures Lala ZHANGP 11/20/2015 Procedures Lala ZHANGP 09/25/2015 Procedures Lala ZHANGP 07/31/2015 Procedures Lala ZHANGP 06/03/2015 Procedures Lala ZHANGP 04/08/2015 Procedures Lala ZHANGP 02/11/2015 Procedures Lala ZHANGP 12/17/2014 Procedures Lala CONWAY 10/18/2014 Procedures Lala ZHANGP 08/23/2014 Procedures Lala ZHANGP 08/15/2014 Office visit Lala CONWAY
--- OUTSIDE RECORDS SUMMARY | 2018-05-04 10:17 | XMS REPORT ---
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 Vital Signs Date Time BP-Sys(mm[Hg] BP-Laury(mm[Hg]) HR(bpm) RR(rpm) Temp WT HT HC BMI BSA BMI Percentile O2 Sat(%) 09/25/2015 10:54:00 AM 102 mmHg 52 mmHg 78 bpm 16 rpm 97.1 F 07/31/2015 1:21:00 PM 114 mmHg 62 mmHg 76 bpm 16 rpm 98.3 F 06/03/2015 10:52:00 AM 132 mmHg 78 mmHg 76 bpm 18 rpm 97.4 F 145 lbs 64 in 24.8889 kg/m 1.72 m2 04/08/2015 10:20:00 AM 108 mmHg 64 mmHg 84 bpm 16 rpm 97.6 F 145 lbs 64 in 24.8889 kg/m 1.7234 m 02/11/2015 11:30:00 AM 104 mmHg 68 mmHg 18 rpm 97.5 F 140 lbs 64.5 in 23.6596 kg/m 1.70 m2 12/17/2014 9:24:00 AM 120 mmHg 76 mmHg 65 bpm 18 rpm 96 F 125 lbs 64 in 21.46 kg/m2 1.6001 m 10/18/2014 10:32:00 AM 114 mmHg [...] Status 06/03/2015 12:00 AM ANL SP INF UPPER AND BOTTOM LACER HAND W/MDREPRG&AYSHA Reviewed 06/03/2015 12:00 AM Baclofen, 10 Mg ND# [address]-80 Reviewed 07/31/2015 12:00 AM ANL SP INF UPPER AND BOTTOM LACER HAND W/MDREPRG&AYSHA Reviewed 07/31/2015 12:00 AM Baclofen, 10 Mg NDC# [address]-82 Reviewed 02/11/2015 12:00 AM ANL SP INF UPPER AND BOTTOM LACER HAND W/MDREPRG&AYSHA Returned 02/11/2015 12:00 AM Baclofen, 10 Mg NDC# [address]-64 Returned Results Summary Not available. History Of [...] of intracranial injury Sep 25 2015 10:56AM Payers Insurance Name Company Name Plan Name Plan Number Policy Number Policy Group Number Start Date Medicare Part B Medicare Of [place] [id number] November [facility] [id number] N/A History of Encounters Visit Date Visit Type Provider 09/25/2015 Procedures Lala CONWAY 07/31/2015 Procedures Lala CONWAY 06/03/2015 Procedures Lala CONWAY 04/08/2015 Procedures Lala CONWAY 02/11/2015 Procedures Lala CONWAY 12/17/2014 Procedures Lala CONWAY 10/18/2014 Procedures Lala CONWAY 08/23/2014 Procedures Lala CONWAY 08/15/2014 Office visit Lala CONWAY
--- OUTSIDE RECORDS SUMMARY | 2018-05-04 10:18 | XMS REPORT ---
Author Author Lala River [facility] Address [address] [place], [place] [address] Care Team Providers Care Carpet Sewing Machine Operator Name Role Phone Lala River PCP Allergies [...] HC BMI BSA BMI Percentile O2 Sat(%) 07/29/2016 11:03:00 AM 128 mmHg 64 mmHg [...] Status 06/03/2015 12:00 AM ANL SP INF PIG MACHINE CRANE OPERATOR W/MDREPRG&AYSHA Reviewed 06/03/2015 12:00 AM Baclofen, 10 Mg [facility]# [address]-26 Reviewed 07/31/2015 12:00 AM ANL SP INF PIG MACHINE CRANE OPERATOR W/MDREPRG&AYSHA Reviewed 07/31/2015 12:00 AM Baclofen, 10 Mg [facility]# [address]-99 Reviewed 09/25/2015 12:00 AM ANL SP INF PIG MACHINE CRANE OPERATOR W/MDREPRG&AYSHA Reviewed 02/11/2015 12:00 AM ANL SP INF PIG MACHINE CRANE OPERATOR W/MDREPRG&AYSHA Reviewed 02/11/2015 12:00 AM Baclofen, 10 Mg [facility]# [address]-29 Reviewed Results Summary Not available. History Of [...] of intracranial injury Jul 29 2016 11:05AM Payers Insurance Name Company Name Plan Name Plan Number Policy Number Policy Group Number Start Date Medicare Part B Medicare Of [place] [id number] November [facility] [id number] N/A History of Encounters Visit Date Visit Type Provider 07/29/2016 Procedures Lala CONWAY 06/10/2016 Procedures Lala CONWAY 04/22/2016 Procedures Lala ZHANGP 02/26/2016 Procedures Lala ZHANGP 01/15/2016 Procedures Lala ZHANGP 11/20/2015 Procedures Lala ZHANGP 09/25/2015 Procedures Lala ZHANGP 07/31/2015 Procedures Lala CONWAY 06/03/2015 Procedures Lala ZHANGP 04/08/2015 Procedures Lala ZHANGP 02/11/2015 Procedures Lala ZHANGP 12/17/2014 Procedures Lala ZHANGP 10/18/2014 Procedures Lala CONWAY 08/23/2014 Procedures Lala ZHANGP 08/15/2014 Office visit Lala CONWAY
--- OUTSIDE RECORDS SUMMARY | 2018-05-04 10:18 | XMS REPORT ---
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 Vital Signs Date Time BP-Sys(mm[Hg] BP-Laury(mm[Hg]) HR(bpm) RR(rpm) Temp WT HT HC BMI BSA BMI Percentile O2 Sat(%) 10/28/2016 11:32:00 AM 118 mmHg 64 mmHg [...] Status 06/03/2015 12:00 AM ANL SP INF POWER GRADER OPERATOR W/MDREPRG&AYSHA Reviewed 06/03/2015 12:00 AM Baclofen, 10 Mg [facility]# [address]-88 Reviewed 07/31/2015 12:00 AM ANL SP INF POWER GRADER OPERATOR W/MDREPRG&AYSHA Reviewed 07/31/2015 12:00 AM Baclofen, 10 Mg [facility]# [address]-23 Reviewed 09/25/2015 12:00 AM ANL SP INF POWER GRADER OPERATOR W/MDREPRG&AYSHA Reviewed 02/11/2015 12:00 AM ANL SP INF POWER GRADER OPERATOR W/MDREPRG&AYSHA Reviewed 02/11/2015 12:00 AM Baclofen, 10 Mg [facility]# [address]-76 Reviewed Results Summary Not available. History Of [...] of intracranial injury Oct 28 2016 10:40AM Payers Insurance Name Company Name Plan Name Plan Number Policy Number Policy Group Number Start Date Medicare RHC Medicare RHC [id number] N/A [facility] [id number] N/A Medicare Part A Medicare - Lab/Xray [id number] N/A [facility] [id number] N/A Medicare Part B Medicare Of [place] [id number] November History of Encounters Visit Date Visit Type Provider 10/28/2016 Procedures Lala CONWAY 09/23/2016 Procedures Lala [...]
--- OUTSIDE RECORDS SUMMARY | 2018-05-04 10:19 | XMS REPORT ---
Author Author Lala River [facility] Address [address] [place], [place] [address] Care Team Providers Care Healthcare Liaison Name Role Phone Lala River PCP Allergies [...] Status 06/03/2015 12:00 AM ANL SP INF MARBLE CLEANER W/MDREPRG&AYSHA Reviewed 06/03/2015 12:00 AM Baclofen, 10 Mg [facility]# [address]-52 Reviewed 07/31/2015 12:00 AM ANL SP INF MARBLE CLEANER W/MDREPRG&AYSHA Reviewed 07/31/2015 12:00 AM Baclofen, 10 Mg [facility]# [address]-65 Reviewed 09/25/2015 12:00 AM ANL SP INF MARBLE CLEANER W/MDREPRG&AYSHA Reviewed 02/11/2015 12:00 AM ANL SP INF MARBLE CLEANER W/MDREPRG&AYSHA Reviewed 02/11/2015 12:00 AM Baclofen, 10 Mg [facility]# [address]-98 Reviewed Results Summary Not available. History Of [...] of intracranial injury Sep 23 2016 11:23AM Payers Insurance Name Company Name Plan Name Plan Number Policy Number Policy Group Number Start Date Medicare [facility] Medicare C [id number] N/A [facility] [id number] N/A Medicare Part A Medicare - Lab/Xray [id number] N/A [facility] [id number] N/A Medicare Part B Medicare Of [place] [id number] November History of Encounters Visit Date Visit Type Provider 09/23/2016 Procedures Lala CONWAY 07/29/2016 Procedures Lala CONWAY 06/10/2016 Procedures Lala CONWAY 04/22/2016 Procedures Lala CONWAY 02/26/2016 Procedures Lala ZHANGP 01/15/2016 Procedures Lala CONWAY 11/20/2015 Procedures Lala CONWAY 09/25/2015 Procedures Lala CONWAY 07/31/2015 Procedures Lala CONWAY 06/03/2015 Procedures Lala CONWAY 04/08/2015 Procedures Lala CONWAY 02/11/2015 Procedures Lala CONWAY 12/17/2014 Procedures Lala CONWAY 10/18/2014 Procedures Lala CONWAY 08/23/2014 Procedures Lala CONWAY 08/15/2014 Office visit Lala CONWAY
--- OUTSIDE RECORDS SUMMARY | 2018-05-04 10:19 | XMS REPORT ---
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 Vital Signs Date Time BP-Sys(mm[Hg] BP-Laury(mm[Hg]) HR(bpm) RR(rpm) Temp WT HT HC BMI BSA BMI Percentile O2 Sat(%) 08/03/2017 4:35:00 PM 122 mmHg 64 mmHg [...] Status 06/03/2015 12:00 AM ANL SP INF WIRELESS STORE MANAGER W/MDREPRG&AYSHA Reviewed 06/03/2015 12:00 AM Baclofen, 10 Mg [facility]# [address]-22 Reviewed 07/31/2015 12:00 AM ANL SP INF WIRELESS STORE MANAGER W/MDREPRG&AYSHA Reviewed 07/31/2015 12:00 AM Baclofen, 10 Mg [facility]# [address]-97 Reviewed 09/25/2015 12:00 AM ANL SP INF WIRELESS STORE MANAGER W/MDREPRG&AYSHA Reviewed 04/14/2017 12:00 AM MRI UPPER EXTREMITY W/O DYE Returned 04/14/2017 12:00 AM ANL SP INF WIRELESS STORE MANAGER W/MDREPRG&AYSHA Reviewed 06/08/2017 12:00 AM ANL SP INF WIRELESS STORE MANAGER W/MDREPRG&AYSHA Reviewed 02/11/2015 12:00 AM ANL SP INF WIRELESS STORE MANAGER W/MDREPRG&AYSHA Reviewed 02/11/2015 12:00 AM Baclofen, 10 Mg [facility]# [address]-64 Reviewed Results Summary Not available. History Of [...] of cerebral origin Aug 03 2017 4:37PM Payers Insurance Name Company Name Plan Name Plan Number Policy Number Policy Group Number Start Date Medicare Part B Medicare Of [place] [id number] November [facility] [id number] N/A Medicare RHC Medicare RHC [id number] N/A [facility] - RHC [id number] N/A Medicare Part A Medicare - Lab/Xray [id number] N/A History of Encounters Visit Date Visit Type Provider 08/03/2017 Procedures Ender Gutierrez DO 06/08/2017 Procedures Ender Gtuierrez DO 04/18/2017 Nurse visit Ender Gutierrez DO 04/14/2017 Procedures Ender Gutierrez DO 02/24/2017 Procedures Lala CONWAY 12/27/2016 Procedures Lala ZHANGP 10/28/2016 Procedures Lala ZHANGP 09/23/2016 Procedures Lala ZHANGP 07/29/2016 Procedures Lala CONWAY 06/10/2016 Procedures Lala ZHANGP 04/22/2016 Procedures Lala CONWAY 02/26/2016 Procedures Lala CONWAY 01/15/2016 Procedures Lala CONWAY 11/20/2015 Procedures Lala CONWAY 09/25/2015 Procedures Lala ZHANGP 07/31/2015 Procedures Lala ZHANGP 06/03/2015 Procedures Lala CONWAY 04/08/2015 Procedures Lala CONWAY 02/11/2015 Procedures Lala CONWAY 12/17/2014 Procedures Lala CONWAY 10/18/2014 Procedures Lala ZHANGP 08/23/2014 Procedures Lala CONWAY 08/15/2014 Office visit Lala CONWAY
--- OUTSIDE RECORDS SUMMARY | 2018-05-04 10:19 | XMS REPORT ---
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 Vital Signs Date Time BP-Sys(mm[Hg] BP-Laury(mm[Hg]) HR(bpm) RR(rpm) Temp WT HT HC BMI BSA BMI Percentile O2 Sat(%) 04/22/2016 11:25:00 AM 132 mmHg 76 mmHg [...] Status 06/03/2015 12:00 AM ANL SP INF DISABILITY REPRESENTATIVE W/MDREPRG&AYSHA Reviewed 06/03/2015 12:00 AM Baclofen, 10 Mg [facility]# [address]-68 Reviewed 07/31/2015 12:00 AM ANL SP INF DISABILITY REPRESENTATIVE W/MDREPRG&AYSHA Reviewed 07/31/2015 12:00 AM Baclofen, 10 Mg [facility]# [address]-77 Reviewed 09/25/2015 12:00 AM ANL SP INF DISABILITY REPRESENTATIVE W/MDREPRG&AYSHA Reviewed 02/11/2015 12:00 AM ANL SP INF DISABILITY REPRESENTATIVE W/MDREPRG&AYSHA Returned 02/11/2015 12:00 AM Baclofen, 10 Mg [facility]# [address]-59 Returned Results Summary Not available. History Of [...] of intracranial injury Apr 22 2016 11:27AM Payers Insurance Name Company Name Plan Name Plan Number Policy Number Policy Group Number Start Date Medicare Part B Medicare [place] [id number] November [facility] [id number] N/A History of Encounters Visit Date Visit Type Provider 04/22/2016 Procedures Lala CONWAY 02/26/2016 Procedures Lala CONWAY 01/15/2016 Procedures Lala CONWAY 11/20/2015 Procedures Lala CONWAY 09/25/2015 Procedures Lala ZHANGP 07/31/2015 Procedures Lala CONWAY 06/03/2015 Procedures Lala CONWAY 04/08/2015 Procedures Lala CONWAY 02/11/2015 Procedures Lala ZHANGP 12/17/2014 Procedures Lala ZHANGP 10/18/2014 Procedures Lala ZHANGP 08/23/2014 Procedures Lala ZHANGP 08/15/2014 Office visit Lala ZHANGP
--- OUTSIDE RECORDS SUMMARY | 2018-05-04 10:20 | XMS REPORT ---
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 Vital Signs Date Time BP-Sys(mm[Hg] BP-Laury(mm[Hg]) HR(bpm) RR(rpm) Temp WT HT HC BMI BSA BMI Percentile O2 Sat(%) 02/24/2017 10:53:00 AM 126 mmHg 78 mmHg [...] Status 06/03/2015 12:00 AM ANL SP INF FREIGHT CAR CLEANER DELTA SYSTEM W/MDREPRG&AYSHA Reviewed 06/03/2015 12:00 AM Baclofen, 10 Mg [place]# [address]-62 Reviewed 07/31/2015 12:00 AM ANL SP INF FREIGHT CAR CLEANER DELTA SYSTEM W/MDREPRG&AYSHA Reviewed 07/31/2015 12:00 AM Baclofen, 10 Mg N[facility]# [address]-33 Reviewed 09/25/2015 12:00 AM ANL SP INF FREIGHT CAR CLEANER DELTA SYSTEM W/MDREPRG&AYSHA Reviewed 02/11/2015 12:00 AM ANL SP INF FREIGHT CAR CLEANER DELTA SYSTEM W/MDREPRG&AYSHA Reviewed 02/11/2015 12:00 AM Baclofen, 10 Mg [facility]# [address]-39 Reviewed Results Summary Not available. History Of [...] of intracranial injury Feb 24 2017 10:41AM Payers Insurance Name Company Name Plan Name Plan Number Policy Number Policy Group Number Start Date Medicare RHC Medicare RHC [id number] N/A [facility] [id number] N/A Medicare Part A Medicare - Lab/Xray [id number] N/A [facility] [id number] N/A Medicare Part B Medicare Of [place] [id number] November History of Encounters Visit Date Visit Type Provider 02/24/2017 Procedures Lala CONWAY 12/27/2016 Procedures Lala [...]
--- OUTSIDE RECORDS SUMMARY | 2018-05-04 10:20 | XMS REPORT ---
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 Vital Signs Date Time BP-Sys(mm[Hg] BP-Laury(mm[Hg]) HR(bpm) RR(rpm) Temp WT HT HC BMI BSA BMI Percentile O2 Sat(%) 11/20/2015 10:12:00 AM 132 mmHg 78 mmHg [...] Status 06/03/2015 12:00 AM ANL SP INF DIRECT SELLING COUNSELOR W/MDREPRG&AYSHA Reviewed 06/03/2015 12:00 AM Baclofen, 10 Mg [facility]# [address]-19 Reviewed 07/31/2015 12:00 AM ANL SP INF DIRECT SELLING COUNSELOR W/MDREPRG&AYSHA Reviewed 07/31/2015 12:00 AM Baclofen, 10 Mg [facility]# [address]-37 Reviewed 09/25/2015 12:00 AM ANL SP INF DIRECT SELLING COUNSELOR W/MDREPRG&AYSHA Reviewed 02/11/2015 12:00 AM ANL SP INF DIRECT SELLING COUNSELOR W/MDREPRG&AYSHA Returned 02/11/2015 12:00 AM Baclofen, 10 Mg [facility]# [address]-28 Returned Results Summary Not available. History Of [...] of intracranial injury Nov 20 2015 10:12AM Payers Insurance Name Company Name Plan Name Plan Number Policy Number Policy Group Number Start Date Medicare Part B Medicare Of [place] [id number] November [facility] [id number] N/A History of Encounters Visit Date Visit Type Provider 11/20/2015 Procedures Lala CONWAY 09/25/2015 Procedures Lala CONWAY 07/31/2015 Procedures Lala CONWAY 06/03/2015 Procedures Lala CONWAY 04/08/2015 Procedures Lala CONWAY 02/11/2015 Procedures Lala CONWAY 12/17/2014 Procedures Lala CONWAY 10/18/2014 Procedures Lala ZHANGP 08/23/2014 Procedures Lala CONWAY 08/15/2014 Office visit Lala CONWAY
--- OUTSIDE RECORDS SUMMARY | 2018-05-04 10:20 | XMS REPORT ---
Author Author Lala River [facility] Address [address] [place], [place] [address] Care Team Providers Care Missile Mechanic Name Role Phone Lala River PCP Allergies [...] Status 06/03/2015 12:00 AM ANL SP INF MORTGAGE LOAN PROCESSING CLERK W/MDREPRG&AYSHA Reviewed 06/03/2015 12:00 AM Baclofen, 10 Mg [facility]# [address]-68 Reviewed 07/31/2015 12:00 AM ANL SP INF MORTGAGE LOAN PROCESSING CLERK W/MDREPRG&AYSHA Reviewed 07/31/2015 12:00 AM Baclofen, 10 Mg [facility]# [address]-71 Reviewed 09/25/2015 12:00 AM ANL SP INF MORTGAGE LOAN PROCESSING CLERK W/MDREPRG&AYSHA Reviewed 02/11/2015 12:00 AM ANL SP INF MORTGAGE LOAN PROCESSING CLERK W/MDREPRG&AYSHA Returned 02/11/2015 12:00 AM Baclofen, 10 Mg [facility]# [address]-76 Returned Results Summary Not available. History Of [...] Date Medicare Part B Medicare [place] [id number] November [facility] [id number] N/A History of Encounters Visit Date Visit [...]
--- OUTSIDE RECORDS SUMMARY | 2018-05-04 10:21 | XMS REPORT ---
Author Author Lala River [facility] Address [address] [place], [place] [address] Care Team Providers Care Labor And Employment Paralegal Name Role Phone Lala River PCP Allergies [...] HC BMI BSA BMI Percentile O2 Sat(%) 07/31/2015 1:21:00 PM 114 mmHg 62 mmHg [...] Status 06/03/2015 12:00 AM ANL SP INF HAND BOOKBINDER W/MDREPRG&AYSHA Reviewed 06/03/2015 12:00 AM Baclofen, 10 Mg ND# [address]-87 Reviewed 02/11/2015 12:00 AM ANL SP INF HAND BOOKBINDER W/MDREPRG&AYSHA Returned 02/11/2015 12:00 AM Baclofen, 10 Mg [facility]# [address]-20 Returned Results Summary Not available. History Of [...] of intracranial injury Jul 31 2015 1:22PM Payers Insurance Name Company Name Plan Name Plan Number Policy Number Policy Group Number Start Date Medicare Part B Medicare Of [place] [id number] November [facility] [id number] N/A History of Encounters Visit Date Visit Type Provider 07/31/2015 Procedures Lala CONWAY 06/03/2015 Procedures Lala CONWAY 04/08/2015 Procedures Lala CONWAY 02/11/2015 Procedures Lala CONWAY 12/17/2014 Procedures Lala CONWAY 10/18/2014 Procedures Lala CONWAY 08/23/2014 Procedures Lala CONWAY 08/15/2014 Office visit Lala CONWAY
--- OUTSIDE RECORDS SUMMARY | 2018-05-04 10:21 | XMS REPORT ---
Author Author Ender Gutierrez Organization [facility] Address [address] [place], [place] [address] Care Team Providers Care Letterpress Printing Machinist Name Role Phone Ender Gutierrez PCP Allergies [...] Status 06/03/2015 12:00 AM ANL SP INF TRY OUT PERSON W/MDREPRG&AYSHA Reviewed 06/03/2015 12:00 AM Baclofen, 10 Mg [facility]# [address]-09 Reviewed 07/31/2015 12:00 AM ANL SP INF TRY OUT PERSON W/MDREPRG&AYSHA Reviewed 07/31/2015 12:00 AM Baclofen, 10 Mg [facility]# [address]-01 Reviewed 09/25/2015 12:00 AM ANL SP INF TRY OUT PERSON W/MDREPRG&AYSHA Reviewed 04/14/2017 12:00 AM MRI UPPER EXTREMITY W/O DYE Returned 04/14/2017 12:00 AM ANL SP INF TRY OUT PERSON W/MDREPRG&AYSHA Reviewed 06/08/2017 12:00 AM ANL SP INF TRY OUT PERSON W/MDREPRG&AYSHA Reviewed 02/11/2015 12:00 AM ANL SP INF TRY OUT PERSON W/MDREPRG&AYSHA Reviewed 02/11/2015 12:00 AM Baclofen, 10 Mg [facility]# [address]-66 Reviewed Results Summary Not available. History Of [...] Date Medicare Part B Medicare Of [place] [id number] November [facility] [id number] N/A Medicare RHC Medicare RHC [id number] N/A [facility] [id number] N/A Medicare Part A Medicare - Lab/Xray [id number] N/A History of Encounters Visit Date Visit Type Provider 06/08/2017 Procedures Ender Gutierrez DO 04/18/2017 Nurse visit Ender Gutierrez DO 04/14/2017 Procedures Ender Gutierrez DO 02/24/2017 Procedures Lala CONWAY 12/27/2016 Procedures Lala CONWAY 10/28/2016 Procedures Lala CONWAY 09/23/2016 Procedures Lala ZHANGP 07/29/2016 Procedures Lala CONWAY 06/10/2016 Procedures Lala CONWAY 04/22/2016 Procedures Lala CONWAY 02/26/2016 Procedures Lala ZHANGP 01/15/2016 Procedures Lala CONWAY 11/20/2015 Procedures Lala ZHANGP 09/25/2015 Procedures Lala ZHANGP 07/31/2015 Procedures Lala ZHANGP 06/03/2015 Procedures Lala ZHANGP 04/08/2015 Procedures Lala CNOWAY 02/11/2015 Procedures Lala CONWAY 12/17/2014 Procedures Lala CONWAY 10/18/2014 Procedures Lala ZHANGP 08/23/2014 Procedures Lala ZHANGP 08/15/2014 Office visit Lala CONWAY
--- OUTSIDE RECORDS SUMMARY | 2018-05-04 10:21 | XMS REPORT ---
Author Author Ender Gutierrez Organization [facility] Address [address] [place], [place] [address] Care Team Providers Care Tilting Saw Operator Name Role Phone Ender Gutierrez PCP Allergies [...] Status 06/03/2015 12:00 AM ANL SP INF ADVENTURE EDUCATION TEACHER W/MDREPRG&AYSHA Reviewed 06/03/2015 12:00 AM Baclofen, 10 Mg [facility]# [address]-81 Reviewed 07/31/2015 12:00 AM ANL SP INF ADVENTURE EDUCATION TEACHER W/MDREPRG&AYSHA Reviewed 07/31/2015 12:00 AM Baclofen, 10 Mg [facility]# [address]-75 Reviewed 09/25/2015 12:00 AM ANL SP INF ADVENTURE EDUCATION TEACHER W/MDREPRG&AYSHA Reviewed 02/11/2015 12:00 AM ANL SP INF ADVENTURE EDUCATION TEACHER W/MDREPRG&AYSHA Reviewed 02/11/2015 12:00 AM Baclofen, 10 Mg ND# [address]-79 Reviewed Results Summary Not available. History Of [...] Date Medicare Part B Medicare Of [place] [id number] November [facility] [id number] N/A Medicare RHC Medicare RHC [id number] N/A [facility] [id number] N/A Medicare Part A Medicare - Lab/Xray [id number] N/A History of Encounters Visit Date Visit Type Provider 04/18/2017 Nurse visit Ender Gutierrez DO 04/14/2017 [...] 06/03/2015 Procedures Lala ZHANGP 04/08/2015 Procedures Lala CONWAY 02/11/2015 Procedures Lala ZHANGP 12/17/2014 Procedures Lala ZHANGP 10/18/2014 Procedures Lala ZHANGP 08/23/2014 Procedures Lala ZHANGP 08/15/2014 Office visit Lala CONWAY
--- OUTSIDE RECORDS SUMMARY | 2018-05-04 10:22 | XMS REPORT ---
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 History Of [...] of intracranial injury Jun 03 2015 10:53AM Payers Insurance Name Company Name Plan Name Plan Number Policy Number Policy Group Number Start Date Medicare Part B Medicare Of [place] [id number] November [facility] [id number] N/A History of Encounters Visit Date Visit Type Provider 06/03/2015 Procedures Lala CONWAY 04/08/2015 Procedures Lala CONWAY 02/11/2015 Procedures aLla CONWAY 12/17/2014 Procedures Lala CONWAY 10/18/2014 Procedures Lala CONWAY 08/23/2014 Procedures Lala CONWAY 08/15/2014 Office visit Lala CONWAY
--- OUTSIDE RECORDS SUMMARY | 2018-05-04 10:22 | XMS REPORT ---
Author Author Ender Gutierrez Organization [facility] Address [address] [place], [place] [address] Care Team Providers Care Pourer Name Role Phone Ender Gutierrez PCP Allergies [...] Status 06/03/2015 12:00 AM ANL SP INF TEXTILE ENGINEER W/MDREPRG&AYSHA Reviewed 06/03/2015 12:00 AM Baclofen, 10 Mg [facility]# [address]-49 Reviewed 07/31/2015 12:00 AM ANL SP INF TEXTILE ENGINEER W/MDREPRG&AYSHA Reviewed 07/31/2015 12:00 AM Baclofen, 10 Mg [facility]# [address]-31 Reviewed 09/25/2015 12:00 AM ANL SP INF TEXTILE ENGINEER W/MDREPRG&AYSHA Reviewed 02/11/2015 12:00 AM ANL SP INF TEXTILE ENGINEER W/MDREPRG&AYSHA Reviewed 02/11/2015 12:00 AM Baclofen, 10 Mg [place]# [address]-75 Reviewed Results Summary Not available. History Of [...] Date Medicare Part B Medicare Of [place] [id number] November [facility] [id number] N/A Medicare RHC Medicare RHC [id number] N/A [facility] [id number] N/A Medicare Part A Medicare - Lab/Xray [id number] N/A History of Encounters Visit Date Visit [...]
--- OUTSIDE RECORDS SUMMARY | 2018-05-04 10:22 | XMS REPORT ---
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# [address]-51 Reviewed 07/31/2015 12:00 AM ANL SP INF TECHNICAL ADVISOR W/MDREPRG&AYSHA Reviewed 07/31/2015 12:00 AM Baclofen, 10 Mg [facility]# [address]-11 Reviewed 09/25/2015 12:00 AM ANL SP INF TECHNICAL ADVISOR W/MDREPRG&AYSHA Reviewed 02/11/2015 12:00 AM ANL SP INF TECHNICAL ADVISOR W/MDREPRG&AYSHA Returned 02/11/2015 12:00 AM Baclofen, 10 Mg [facility]# [address]-59 Returned Results Summary Not available. History Of [...] of intracranial injury Feb 26 2016 3:16PM Payers Insurance Name Company Name Plan Name Plan Number Policy Number Policy Group Number Start Date Medicare Part B Medicare Of [place] [id number] November [facility] [id number] N/A History of Encounters Visit Date Visit Type Provider 02/26/2016 Procedures Lala CONWAY 01/15/2016 Procedures Lala ZHANGP 11/20/2015 Procedures Lala ZHANGP 09/25/2015 Procedures Lala ZHANGP 07/31/2015 Procedures Lala ZHANGP 06/03/2015 Procedures Lala ZHANGP 04/08/2015 Procedures Lala ZHANGP 02/11/2015 Procedures Lala ZHANGP 12/17/2014 Procedures Lala ZHANGP 10/18/2014 Procedures Lala ZHANGP 08/23/2014 Procedures Lala River [facility] 08/15/2014 Office visit Lala ZHANGP
--- OUTSIDE RECORDS SUMMARY | 2018-05-04 10:23 | XMS REPORT ---
Author Author Ender Gutierrez Organization [facility] Address [address] [place], [place] [address] Care Team Providers Care Hall Worker Name Role Phone Ender Gutierrez PCP Allergies [...] Status 06/03/2015 12:00 AM ANL SP INF HAT AND CAP DRYING ROOM ATTENDANT W/MDREPRG&AYSHA Reviewed 06/03/2015 12:00 AM Baclofen, 10 Mg [facility]# [address]-93 Reviewed 07/31/2015 12:00 AM ANL SP INF HAT AND CAP DRYING ROOM ATTENDANT W/MDREPRG&AYSHA Reviewed 07/31/2015 12:00 AM Baclofen, 10 Mg [facility]# [address]-83 Reviewed 09/25/2015 12:00 AM ANL SP INF HAT AND CAP DRYING ROOM ATTENDANT W/MDREPRG&AYSHA Reviewed 02/11/2015 12:00 AM ANL SP INF HAT AND CAP DRYING ROOM ATTENDANT W/MDREPRG&AYSHA Reviewed 02/11/2015 12:00 AM Baclofen, 10 Mg ND# [address]-83 Reviewed Results Summary Not available. History Of [...] Date Medicare Part B Medicare Of [place] [id number] November [facility] [id number] N/A Medicare RHC Medicare RHC [id number] N/A [facility] [id number] N/A Medicare Part A Medicare - Lab/Xray [id number] N/A History of Encounters Visit Date Visit [...]
--- OUTSIDE RECORDS SUMMARY | 2018-05-04 10:24 | XMS REPORT ---
Author Author Ender Gutierrez Organization [facility] Address [address] [place], [place] [id number] Care Team Providers Care Lay Health Advocate Name Role Phone Ender Gutierrez PCP Allergies [...] HC BMI BSA BMI Percentile O2 Sat(%) 09/29/2017 10:40:00 AM 130 mmHg 60 mmHg [...] Status 06/03/2015 12:00 AM ANL SP INF FOOD ADVISER W/MDREPRG&AYSHA Reviewed 06/03/2015 12:00 AM Baclofen, 10 Mg [facility]# [address]-77 Reviewed 07/31/2015 12:00 AM ANL SP INF FOOD ADVISER W/MDREPRG&AYSHA Reviewed 07/31/2015 12:00 AM Baclofen, 10 Mg [facility]# [address]-61 Reviewed 09/25/2015 12:00 AM ANL SP INF FOOD ADVISER W/MDREPRG&AYSHA Reviewed 04/14/2017 12:00 AM MRI UPPER EXTREMITY W/O DYE Returned 04/14/2017 12:00 AM ANL SP INF FOOD ADVISER W/MDREPRG&AYSHA Reviewed 06/08/2017 12:00 AM ANL SP INF FOOD ADVISER W/MDREPRG&AYSHA Reviewed 08/03/2017 12:00 AM ANL SP INF FOOD ADVISER W/MDREPRG&AYSHA Reviewed 02/11/2015 12:00 AM ANL SP INF FOOD ADVISER W/MDREPRG&AYSHA Reviewed 02/11/2015 12:00 AM Baclofen, 10 Mg [facility]# [address]-38 Reviewed Results Summary Not available. History Of [...] of cerebral origin Sep 29 2017 10:42AM Payers Insurance Name Company Name Plan Name Plan Number Policy Number Policy Group Number Start Date Medicare Part B Medicare Of [place] [id number] November [facility] [id number] N/A Medicare RHC Medicare RHC [id number] N/A [facility] [id number] N/A Medicare Part A Medicare - Lab/Xray [id number] N/A History of Encounters Visit Date Visit Type Provider 09/29/2017 Procedures Ender Gutierrez DO 08/03/2017 Procedures Ender Gutierrez DO 06/08/2017 Procedures Ender Gutierrez DO 04/18/2017 Nurse visit Ender Gutierrez DO 04/14/2017 Procedures Ender Gutierrez DO 02/24/2017 Procedures Lala ZHANGP 12/27/2016 Procedures Lala ZHANGP 10/28/2016 Procedures Lala ZHANGP 09/23/2016 Procedures Lala ZHANGP 07/29/2016 Procedures Lala ZHANGP 06/10/2016 Procedures Lala ZHANGP 04/22/2016 Procedures Lala ZHANGP 02/26/2016 Procedures Lala CONWAY 01/15/2016 Procedures Lala CONWAY 11/20/2015 Procedures Lala ZHANGP 09/25/2015 Procedures Lala ZHANGP 07/31/2015 Procedures Lala CONWAY 06/03/2015 Procedures Lala CONWAY 04/08/2015 Procedures Lala ZHANGP 02/11/2015 Procedures Lala CONWAY 12/17/2014 Procedures Lala CNOWAY 10/18/2014 Procedures Lala CONWAY 08/23/2014 Procedures Lala CONWAY 08/15/2014 Office visit Lala CONWAY
--- OUTSIDE RECORDS SUMMARY | 2018-05-04 10:25 | XMS REPORT ---
Author Author Ender Gutierrez Organization [facility] Address [address] [place], [place] [address] Care Team Providers Care Compressor Operator Portable Name Role Phone Ender Gutierrez PCP Allergies [...] Status 06/03/2015 12:00 AM ANL SP INF OFFICE EMPLOYEE W/MDREPRG&AYSHA Reviewed 06/03/2015 12:00 AM Baclofen, 10 Mg [facility]# [address]-97 Reviewed 07/31/2015 12:00 AM ANL SP INF OFFICE EMPLOYEE W/MDREPRG&AYSHA Reviewed 07/31/2015 12:00 AM Baclofen, 10 Mg [facility]# [address]-16 Reviewed 09/25/2015 12:00 AM ANL SP INF OFFICE EMPLOYEE W/MDREPRG&AYSHA Reviewed 04/14/2017 12:00 AM MRI UPPER EXTREMITY W/O DYE Returned 04/14/2017 12:00 AM ANL SP INF OFFICE EMPLOYEE W/MDREPRG&AYSHA Reviewed 02/11/2015 12:00 AM ANL SP INF OFFICE EMPLOYEE W/MDREPRG&AYSHA Reviewed 02/11/2015 12:00 AM Baclofen, 10 Mg [facility]# [address]-39 Reviewed Results Summary Not available. History Of [...] Date Medicare Part B Medicare Of [place] [id number] November [facility] [id number] N/A [facility] [id number] N/A [facility] - RHC [id number] N/A Medicare Part A Medicare - Lab/Xray [id number] N/A History of Encounters Visit Date Visit Type Provider 06/08/2017 Procedures Ender [facility] DO 04/18/2017 [facility] 02/24/2017 Procedures Lala CONWAY 12/27/2016 [...]
--- OUTSIDE RECORDS SUMMARY | 2018-05-04 10:27 | XMS REPORT ---
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 History of Procedures Date Ordered Description Order Status 06/03/2015 12:00 AM ANL SP INF DIE CUTTING MACHINE OPERATOR W/MDREPRG&AYSHA Reviewed 06/03/2015 12:00 AM Baclofen, 10 Mg [place]# [address]-11 Reviewed 07/31/2015 12:00 AM ANL SP INF DIE CUTTING MACHINE OPERATOR W/MDREPRG&AYSHA Reviewed 07/31/2015 12:00 AM Baclofen, 10 Mg ND# [address]-45 Reviewed 09/25/2015 12:00 AM ANL SP INF DIE CUTTING MACHINE OPERATOR W/MDREPRG&AYSHA Reviewed 02/11/2015 12:00 AM ANL SP INF DIE CUTTING MACHINE OPERATOR W/MDREPRG&AYSHA Returned 02/11/2015 12:00 AM Baclofen, 10 Mg [facility]# [address]-62 Returned Results Summary Not available. History Of [...] of intracranial injury Jan 15 2016 9:58AM Payers Insurance Name Company Name Plan Name Plan Number Policy Number Policy Group Number Start Date Medicare Part B Medicare Of [place] [id number] November [facility] [id number] N/A History of Encounters Visit Date Visit Type Provider 01/15/2016 Procedures Lala CONWAY 11/20/2015 Procedures Lala CONWAY 09/25/2015 Procedures Lala CONWAY 07/31/2015 Procedures Lala CONWAY 06/03/2015 Procedures Lala CONWAY 04/08/2015 Procedures Lala CONWAY 02/11/2015 Procedures Lala CONWAY 12/17/2014 Procedures Lala CONWAY 10/18/2014 Procedures Lala CONWAY 08/23/2014 Procedures Lala CONWAY 08/15/2014 Office visit Lala CONWAY
--- OUTSIDE RECORDS SUMMARY | 2018-05-04 10:28 | XMS REPORT ---
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 Vital Signs Date Time BP-Sys(mm[Hg] BP-Laury(mm[Hg]) HR(bpm) RR(rpm) Temp WT HT HC BMI BSA BMI Percentile O2 Sat(%) 12/27/2016 9:51:00 AM 126 mmHg 72 mmHg [...] Status 06/03/2015 12:00 AM ANL SP INF CHIEF LIFESTYLE OFFICER W/MDREPRG&AYSHA Reviewed 06/03/2015 12:00 AM Baclofen, 10 Mg ND# [address]-88 Reviewed 07/31/2015 12:00 AM ANL SP INF CHIEF LIFESTYLE OFFICER W/MDREPRG&AYSHA Reviewed 07/31/2015 12:00 AM Baclofen, 10 Mg ND# [address]-01 Reviewed 09/25/2015 12:00 AM ANL SP INF CHIEF LIFESTYLE OFFICER W/MDREPRG&AYSHA Reviewed 02/11/2015 12:00 AM ANL SP INF CHIEF LIFESTYLE OFFICER W/MDREPRG&AYSHA Reviewed 02/11/2015 12:00 AM Baclofen, [address] [facility]# [address]-62 Reviewed Results Summary Not available. History Of [...] of intracranial injury Dec 27 2016 9:41AM Payers Insurance Name Company Name Plan Name Plan Number Policy Number Policy Group Number Start Date Medicare RHC Medicare RHC [id number] N/A [facility] [id number] N/A Medicare Part A Medicare - Lab/Xray [id number] N/A [facility] [id number] N/A Medicare Part B Medicare Of [place] [id number] November History of Encounters Visit Date Visit Type Provider 12/27/2016 Procedures Lala CONWAY 10/28/2016 Procedures Lala [...]
--- OUTSIDE RECORDS SUMMARY | 2018-05-04 10:29 | XMS REPORT ---
Author Author Lala River [facility] Address [address] [facility] [address] [place], [place] [address] Care Team Providers Care Educational Interpreter Name Role Phone Lala River PCP Allergies [...] Status 02/11/2015 12:00 AM ANL SP INF PROFILE SAW SETUP OPERATOR W/MDREPRG&AYSHA Returned 02/11/2015 12:00 AM Baclofen, 10 Mg [facility]# [address]-65 Returned Results Summary Not available. History Of [...] Date Medicare Part B Medicare [place] [id number] November [facility] [id number] N/A History of Encounters Visit Date Visit Type Provider 06/03/2015 Procedures Lala CONWAY 04/08/2015 Procedures Lala CONWAY 02/11/2015 Procedures Lala CONWAY 12/17/2014 Procedures Lala CONWAY 10/18/2014 Procedures Lala CONWAY 08/23/2014 Procedures Lala CONWAY 08/15/2014 Office visit Lala CONWAY
--- OUTSIDE RECORDS SUMMARY | 2018-05-04 10:29 | XMS REPORT ---
Author LANEY Massey [employer] Address Unknown Phone Unavailable Care Team Providers Care Senior Writer Name Role Phone LANEY ROSEN CP Unavailable Allergies, Adverse Reactions, Alerts Substance Reaction Event Type N.K.D.A. Info Not Available Non Drug Allergy Problems Problem Type Condition Code Onset Dates Condition Status Assessment Dental examination Z01.20 Active Medications Medication Code System Code Instructions Start Date End Date Status Dosage Meloxicam [facility] [address]-61 not defined Calcium NDC 0 not defined Bactrim [facility] [address]-86 not defined Senna Plus [facility] [address]-88 not defined Acidophilus [facility] 05959-05270 not defined Triamcinolone & Bupiv & Lido NDC 0 not defined Lexapro [facility] [address]-20 not defined Depakote [facility] [address]-74 not defined Bengay NDC 0 not defined Tramadol HCl NDC 0 not defined Ditropan NDC 0 not defined Levothyroxine Sodium [facility] [address]-44 [place] [address]-30 not defined Depakote [facility] [address]-16 not defined Extra Strength Acetaminophen [facility] [address]-11 not defined Omeprazole NDC 0 [place] [address]-12 [place] [address]-80 not defined Procedures Procedure Coding System Code Date Dental no charge CPT-4 D0099 May 13, 2016 Results No Known Results Summary Purpose [employer] Submission
--- OUTSIDE RECORDS SUMMARY | 2018-05-04 10:30 | XMS REPORT ---
Author LANEY Massey [employer] Address Unknown Phone Unavailable Care Team Providers Care Director Of Rotc Name Role Phone LANEY ROSEN CP Unavailable Allergies, Adverse Reactions, Alerts Substance Reaction Event Type N.K.D.A. Info Not Available Non Drug Allergy Problems Problem Type Condition Code Onset Dates Condition Status Assessment Dental examination Z01.20 Active Medications Medication Code System Code Instructions Start Date End Date Status Dosage Senna Plus [facility] [address]-93 not defined Mirtazapine [facility] [address]-71 not defined Omeprazole NDC 0 not defined Bengay [facility] [address]487 not defined Polyethylene Glycol [facility] [address]-45 not defined Meloxicam [facility] [address]-46 not defined Tramadol HCl NDC 0 not defined Acidophilus [facility] 76243-41607 not defined Calcium NDC 0 not defined Triamcinolone & Bupiv & Lido NDC 0 not defined Bactrim [facility] [address]-35 not defined Ditropan NDC 0 not defined Lexapro [facility] [address]-64 not defined Levothyroxine Sodium [facility] [address]-07 not defined Amantadine HCl [facility] [address]-74 not defined Extra Strength Acetaminophen [facility] [address]-68 not defined Depakote [facility] [address]-32 not defined Depakote [facility] [address]-51 not defined Procedures Procedure Coding System Code Date Dental no charge CPT-4 D0099 Mar 04, 2016 Results No Known Results Summary Purpose [employer] Submission
--- OUTSIDE RECORDS SUMMARY | 2018-05-04 10:30 | XMS REPORT ---
Author LANEY Massey [facility] Address Unknown Care Team Providers Care Armature Balancer Name Role Phone LANEY ROSEN Unavailable PROBLEMS Type Condition ICD9-CM Code [id number] Code Onset Dates Condition Status SNOMED Code Assessment Dental examination Z01.20 Mar, Active [id number] ALLERGIES No Known Allergies SOCIAL HISTORY No smoking Hx information available PLAN OF CARE VITAL SIGNS MEDICATIONS No Known Medications RESULTS No Results PROCEDURES Procedure Date Ordered Related Diagnosis Body Site Dental no charge Mar 25, 2016 IMMUNIZATIONS No Known Immunizations
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
--- OUTSIDE RECORDS SUMMARY | 2018-05-04 10:30 | XMS REPORT ---
Author Author LANEY ROSEN [facility] Address Unknown Care Team Providers Care Edi Coordinator Name Role Phone LANEY ROSEN Unavailable PROBLEMS Type Condition ICD9-CM Code GDT89-RT Code Onset Dates Condition Status SNOMED Code Assessment Dental examination Z01.20 Mar, Active [id number] ALLERGIES Substance Reaction Event Type Date Status N.K.D.A. Unknown Non Drug Allergy Mar, Unknown SOCIAL HISTORY No smoking Hx information available PLAN OF CARE VITAL SIGNS Blood pressure systolic 132 mmHg 2016-04-08 Blood pressure diastolic 89 mmHg 2016-04-08 MEDICATIONS Medication Instructions Dosage Frequency Start Date End Date Duration Status Depakote Active Bactrim Active Senna Plus Active Tramadol HCl Active Extra Strength Acetaminophen Active Polyethylene Glycol Active Amantadine HCl Active Meloxicam Active Triamcinolone & Bupiv & Lido Active Depakote Active Bengay Active Lexapro Active Acidophilus Active Mirtazapine Active Ditropan Active Omeprazole Active Calcium Active Levothyroxine Sodium Active RESULTS No Results PROCEDURES Procedure Date Ordered Related Diagnosis Body Site Dental no charge Apr 08, 2016 IMMUNIZATIONS No Known Immunizations
[2018-05-04] MEDS ORDERED: LACTATED RINGERS 1,000 ML IV PRN (10:54)
[2018-05-04] MEDS ORDERED: ceFAZolin INJECTION 1,000 MG in NS (IVPB) 50 ML IV ONE (11:00)
[2018-05-04] MEDS ORDERED: oxyCODONE/APAP 5/325MG (PERCOCET 5) TABLET PO PRN (11:45)
[2018-05-04] MEDS ORDERED: ONDANSETRON 4 MG/2 ML (SDV) Z0FRAN IVP PRN ×2 (11:45→15:30)
[2018-05-04] MEDS ORDERED: morphine INJ 10 MG/ML 1ML (SYR OR VIAL) IVP PRN (11:45)
[2018-05-04] MEDS ORDERED: ACETAMINOPHEN 325 MG TABLET PO PRN (11:45)
--- NOTE | 2018-05-04 11:45 | Progress Note-Pre Operative ---
Pre-Operative Progress Note H&P Reviewed The H&P was reviewed, patient examined and no changes noted. Date Seen by Provider: May 04, 2018 Time Seen by Provider: 11:40 Date H&P Reviewed: May 04, 2018 Time H&P Reviewed: 11:40 Pre-Operative Diagnosis: stage 4 sacral decubitus ulcer EYAD BOB MD May 04, 2018 11:45 am
[2018-05-04] MEDS ORDERED: BUP/EPI 0.5% 1:200,000 (SENSORCAINE) 30 ML VIAL ONE (13:18)
[2018-05-04] MEDS ORDERED: DEXAMETHASONE 10 MG/ML (DECADRON) 1 ML VIAL ONE (13:23)
[2018-05-04] MEDS ORDERED: fentaNYL INJECTION 100 MCG/2 ML AMP ONE (13:23)
[2018-05-04] MEDS ORDERED: proPOfol 200 MG/20 ML (DIPRIVAN) VIAL IV ONE (13:23)
[2018-05-04] MEDS ORDERED: ONDANSETRON 4 MG/2 ML (SDV) Z0FRAN ONE (13:23)
[2018-05-04] MEDS ORDERED: ROCURONIUM 10 MG/ML 5 ML SYRINGE IV ONE (13:23)
[2018-05-04] MEDS ORDERED: LIDOCAINE PF 2% 5 ML (XYLOCAINE) VIAL ONE (13:23)
[2018-05-04] MEDS ORDERED: MIDAZOLAM 2 MG/2 ML (VERSED) VIAL ONE (13:24)
[2018-05-04] MEDS ORDERED: SEVOFLURANE (ULTANE) 15 ML INHAL SOLN ONE ×2 (13:28→14:47)
[2018-05-04] MEDS ORDERED: NEOSTIGMINE 1 MG/ML 5 ML SYRINGE ONE (14:43)
[2018-05-04] MEDS ORDERED: GLYCOPYRROLATE 0.2 MG/ML (ROBINUL) 2 ML VIAL ONE (14:43)
--- NOTE | 2018-05-04 14:52 | Progress Note-Post Operative ---
Post-Operative Progess Note Surgeon (s)/Pump Press Operator (s) Surgeon EYAD BOB MD Pump Press Operator: kai menchaca MECHANIC CHIEF Pre-Operative Diagnosis stage 4 sacral decubitus ulcer Post-Operative Diagnosis same Procedure & Operative Findings Date of Procedure 05/04/18 Procedure Performed/Findings debridement, rhomboid myocutaneous flap (6x5cm). Anesthesia Type GET Estimated Blood Loss Estimated blood loss (mL): minimal Specimens/Packing Specimens Removed decubitus ulcer EYAD BOB MD May 04, 2018 2:52 pm
[2018-05-04] MEDS ORDERED: METR500T PO (14:55)
[2018-05-04] MEDS ORDERED: CIPR-225 PO (14:55)
--- NOTE | 2018-05-04 14:57 | Discharge Inst-Surgical ---
D/C Lap Instructions-PAULINO New, Converted, or Re-Newed RX: RX on Chart Follow Up Appt in 1 week Activity as tolerated No driving for 24 hours No driving while on pain medications Incentive Spirometry use every 2 hours while awake Off-load pressure sacrococcygeal region q 15minutes Regular Diet Symptoms to Report: Fever over 101 degree F, Nausea/Vomiting Infection Signs and Symptoms to report: Increased redness, Foul odor of wound, Increased drainage Bathing instructions: May shower Operative Area Clean/Dry; Keep incision clean/dry If any problems/questions: Contact your physician or go to Emergency Room EYAD BOB MD May 04, 2018 2:57 pm
[2018-05-04] MEDS ORDERED: PHENYLEPHRINE 100 MCG/ML 10 ML (ANESTHESIA) SYR ONE (14:59)
--- NOTE | 2018-05-04 15:20 | Anesthesia-General Post-Op ---
General Patient Condition Mental Status/LOC: Same as Preop Cardiovascular: Satisfactory Nausea/Vomiting: Absent Respiratory: Satisfactory Pain: Controlled Complications: Absent Post Op Complications Complications None Follow Up Care/Instructions Patient Instructions None needed. Anesthesia/Patient Condition Patient Condition Patient is doing well, no complaints, stable vital signs, no apparent adverse anesthesia problems. No complications reported per nursing. ARISTIDES MARIA CRNA May 04, 2018 15:20
[2018-05-04] MEDS ORDERED: MEPERIDINE (DEMEROL) INJ 50 MG/ML IVP ONE (15:30)
[2018-05-04] MEDS ORDERED: HYDROmorphone 2 MG/ML VIAL (DILAUDID) IV ONE (15:30)
[2018-05-04] MEDS ORDERED: morphine INJ 10 MG/ML 1ML (SYR OR VIAL) IVP ONE (15:30)
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
[2018-05-04 16:15] VITALS: BP 89/54
[2018-05-04 16:45] VITALS: BP 97/53
[2018-05-04 17:15] VITALS: BP 98/60
[2018-05-04 17:30] VITALS: BP 98/60
== END 2018-05-04 17:30 | disposition home or self-care (01) ==
LOC: SDC 10:09
PROVIDERS: ATTEND Surgery
DX: L89.154 Pressure ulcer of sacral region, stage 4 (principal); G82.20 Paraplegia, unspecified; F17.210 Nicotine dependence, cigarettes, uncomplicated; V99.XXXD Unspecified transport accident, subsequent encounter; Z79.899 Other long term (current) drug therapy
CPT/HCPCS: 87081; 88304; 94664

== ENCOUNTER → 2018-05-09 | Outpatient (CLI) | payer MEDICARE, MEDICAID ==
[~2018-05-09] MED LIST changes: +CIPR-225 PO; +METR500T PO
== END ==
LOC: WOUNDCARE 09:18
PROVIDERS: ATTEND Surgery
DX: L89.152 Pressure ulcer of sacral region, stage 2 (principal); G82.54 Quadriplegia, C5-C7 incomplete
CPT/HCPCS: 99212

== ENCOUNTER → 2018-05-10 | Outpatient (CLI) | payer MEDICARE, MEDICAID ==
--- NOTE | 2018-05-10 10:49 | Diagnostic Imaging Report ---
INDICATION: Neurogenic bladder. Patient has prior history of vesicocutaneous fistula. Patient has suprapubic catheter that was removed. The patient complains of continued leaking. TECHNIQUE: Precontrast axial imaging through the pelvis was performed. Next, Almeida catheter was placed and 75 mL of Omnipaque 350 was injected through the Almeida into the patient's bladder. Axial imaging was then performed. Next, the bladder was drained and postdrainage imaging through the pelvis was performed. COMPARISON: Correlation is made with prior CT of the pelvis from 08/12/2015. FINDINGS: The bladder again shows some wall thickening and trabeculation. Previously noted tract extending from the skin surface to the anterior mid bladder in the left paramidline location is again seen. There is a minimal amount of gas within the vesicocutaneous tract but no contrast is seen within the tract. No other abnormal communications are identified. No pelvic free fluid or fluid collections are seen. The bowel loops are normal caliber. IMPRESSION: Previously noted left paramidline vesicocutaneous fistula is again seen and similar to the CT from 08/12/2015. There is a small amount of gas within the tract but no contrast is seen extending into the tract on today's exam. Dictated by: Dictated on workstation # [id number] ADDENDUM: UPDATED ORDERING PHYSICIAN BOAZ REED
== END ==
LOC: RAD 09:35
PROVIDERS: ATTEND Urology
DX: N31.9 Neuromuscular dysfunction of bladder, unspecified (principal)
CPT/HCPCS: 72192

== ENCOUNTER → 2018-05-18 | Outpatient (CLI) | payer MEDICARE, MEDICAID | LOC: WOUNDCARE 08:40 | PROVIDERS: ATTEND Nurse Practitioner | DX: L89.512 Pressure ulcer of right ankle, stage 2 (principal); G82.54 Quadriplegia, C5-C7 incomplete | CPT/HCPCS: 99213 ==

== ENCOUNTER → 2018-05-25 | Outpatient (CLI) | payer MEDICARE, MEDICAID | LOC: WOUNDCARE 09:05 | PROVIDERS: ATTEND Nurse Practitioner | DX: L89.152 Pressure ulcer of sacral region, stage 2 (principal); G82.54 Quadriplegia, C5-C7 incomplete | CPT/HCPCS: 99212 ==

== ENCOUNTER → 2018-06-01 | Outpatient (CLI) | payer MEDICARE, MEDICAID | LOC: WOUNDCARE 09:15 | PROVIDERS: ATTEND Nurse Practitioner | DX: L89.153 Pressure ulcer of sacral region, stage 3 (principal); G82.54 Quadriplegia, C5-C7 incomplete | CPT/HCPCS: 11042; 87070; 87075; 87077; 87205 ==

== ENCOUNTER → 2018-06-01 | Outpatient (CLI) | payer MEDICARE, MEDICAID ==
[2018-06-01 10:32] LABS: BASOPHILS % (AUTO) 0 % (0-10); EOSINOPHILS # (AUTO) 0.4 10^3/uL (0.0-0.3); EOSINOPHILS % (AUTO) 4 % (0-10); HEMATOCRIT 33 % (35-52); HEMOGLOBIN 10.8 G/DL (11.5-16.0); LYMPHOCYTES # (AUTO) 1.8 X 10^3 (1.0-4.0); LYMPHOCYTES % (AUTO) 17 % (12-44); MEAN CORPUSCULAR HEMOGLOBIN 30 PG (25-34); MEAN CORPUSCULAR HGB CONC 33 G/DL (32-36); MEAN CORPUSCULAR VOLUME 90 FL (80-99); MEAN PLATELET VOLUME 9.8 FL (7.4-10.4); MONOCYTES # (AUTO) 1.3 X 10^3 (0.0-1.0); MONOCYTES % (AUTO) 12 % (0-12); NEUTROPHILS # (AUTO) 7.2 X 10^3 (1.8-7.8); NEUTROPHILS % (AUTO) 67 % (42-75); PLATELET COUNT 307 10^3/uL (130-400); RED BLOOD COUNT 3.63 10^6/uL (4.35-5.85); RED CELL DISTRIBUTION WIDTH 13.9 % (10.0-14.5); WHITE BLOOD COUNT 10.7 10^3/uL (4.3-11.0)
[2018-06-01 10:58] LABS: ALANINE AMINOTRANSFERASE 12 U/L (0-55); ALKALINE PHOSPHATASE 85 U/L (40-136); BILIRUBIN,TOTAL 0.2 MG/DL (0.1-1.0); BUN/CREATININE RATIO 28; CALCIUM 9.1 MG/DL (8.5-10.1); CARBON DIOXIDE 23 MMOL/L (21-32); CHLORIDE 97 MMOL/L (98-107); CREATININE SERUM 0.53 MG/DL (0.60-1.30); GFR ESTIMATED > 60; GLUCOSE 111 MG/DL (70-105); POTASSIUM 3.9 MMOL/L (3.6-5.0); SODIUM 132 MMOL/L (135-145); TOTAL PROTEIN 6.8 GM/DL (6.4-8.2)
== END ==
LOC: LAB 10:17
PROVIDERS: ATTEND Nurse Practitioner
DX: L89.152 Pressure ulcer of sacral region, stage 2 (principal); G82.54 Quadriplegia, C5-C7 incomplete
CPT/HCPCS: 36415; 80053; 84134; 85025

== ENCOUNTER → 2018-06-05 | Outpatient (CLI) | payer MEDICARE, MEDICAID | LOC: WOUNDCARE 13:36 | PROVIDERS: ATTEND Nurse Practitioner | DX: G82.54 Quadriplegia, C5-C7 incomplete (principal); L89.153 Pressure ulcer of sacral region, stage 3 | CPT/HCPCS: 99213 ==

== ENCOUNTER → 2018-06-12 | Outpatient (CLI) | payer MEDICARE, MEDICAID | LOC: WOUNDCARE 12:59 | PROVIDERS: ATTEND Nurse Practitioner | DX: L89.153 Pressure ulcer of sacral region, stage 3 (principal); G82.54 Quadriplegia, C5-C7 incomplete | CPT/HCPCS: 99213 ==

== ENCOUNTER → 2018-06-13 | Outpatient (CLI) | payer MEDICARE, MEDICAID | LOC: WOUNDCARE 11:30 | PROVIDERS: ATTEND Nurse Practitioner | DX: L89.153 Pressure ulcer of sacral region, stage 3 (principal); G82.54 Quadriplegia, C5-C7 incomplete | CPT/HCPCS: 97605 ==

== ENCOUNTER → 2018-06-19 | Outpatient (CLI) | payer MEDICARE, MEDICAID | LOC: WOUNDCARE 13:07 | PROVIDERS: ATTEND Nurse Practitioner | DX: L89.153 Pressure ulcer of sacral region, stage 3 (principal); G82.54 Quadriplegia, C5-C7 incomplete | CPT/HCPCS: 11042; 11045 ==

== ENCOUNTER → 2018-06-26 | Outpatient (CLI) | payer MEDICARE, MEDICAID | LOC: WOUNDCARE 13:16 | PROVIDERS: ATTEND Nurse Practitioner | DX: L89.153 Pressure ulcer of sacral region, stage 3 (principal); G82.54 Quadriplegia, C5-C7 incomplete | CPT/HCPCS: 11042; 11045 ==

== ENCOUNTER → 2018-07-03 | Outpatient (CLI) | payer MEDICARE, MEDICAID | LOC: WOUNDCARE 13:24 | PROVIDERS: ATTEND Nurse Practitioner | DX: L89.153 Pressure ulcer of sacral region, stage 3 (principal); G82.54 Quadriplegia, C5-C7 incomplete | CPT/HCPCS: 11042; 11045 ==

== ENCOUNTER → 2018-07-10 | Outpatient (CLI) | payer MEDICARE, MEDICAID | LOC: WOUNDCARE 12:57 | PROVIDERS: ATTEND Nurse Practitioner | DX: L89.153 Pressure ulcer of sacral region, stage 3 (principal); G82.54 Quadriplegia, C5-C7 incomplete | CPT/HCPCS: 11042 ==

== ENCOUNTER → 2018-07-24 | Outpatient (CLI) | payer MEDICARE, MEDICAID | LOC: WOUNDCARE 09:40 | PROVIDERS: ATTEND Nurse Practitioner | DX: L89.153 Pressure ulcer of sacral region, stage 3 (principal); G82.54 Quadriplegia, C5-C7 incomplete | CPT/HCPCS: 11042; 87070; 87075; 87077; 87186; 87205 ==

== ENCOUNTER → 2018-08-03 | Outpatient (CLI) | payer MEDICARE, MEDICAID | LOC: WOUNDCARE 08:28 | PROVIDERS: ATTEND Nurse Practitioner | DX: L89.153 Pressure ulcer of sacral region, stage 3 (principal); G82.54 Quadriplegia, C5-C7 incomplete | CPT/HCPCS: 11042 ==

== ENCOUNTER → 2018-08-11 | Outpatient (CLI) | payer MEDICARE, MEDICAID ==
[2018-08-11 11:29] LABS: ALANINE AMINOTRANSFERASE 17 U/L (0-55); ALBUMIN 3.8 GM/DL (3.2-4.5); ALKALINE PHOSPHATASE 78 U/L (40-136); BILIRUBIN,TOTAL 0.2 MG/DL (0.1-1.0); BUN/CREATININE RATIO 30; CALCIUM 9.2 MG/DL (8.5-10.1); CARBON DIOXIDE 27 MMOL/L (21-32); CHLORIDE 103 MMOL/L (98-107); GFR ESTIMATED > 60; GLUCOSE 92 MG/DL (70-105); POTASSIUM 4.7 MMOL/L (3.6-5.0); SODIUM 138 MMOL/L (135-145); TOTAL PROTEIN 7.2 GM/DL (6.4-8.2)
== END ==
LOC: LAB 10:51
PROVIDERS: ATTEND Surgery
DX: L89.153 Pressure ulcer of sacral region, stage 3 (principal); G82.54 Quadriplegia, C5-C7 incomplete; T65.222A Toxic effect of tobacco cigarettes, intentional self-harm, initial encounter; E44.0 Moderate protein-calorie malnutrition
CPT/HCPCS: 36415; 80053; 84134

== ENCOUNTER → 2018-08-11 | Outpatient (CLI) | payer MEDICARE, MEDICAID | LOC: WOUNDCARE 09:11 | PROVIDERS: ATTEND Surgery | DX: L89.153 Pressure ulcer of sacral region, stage 3 (principal); G82.54 Quadriplegia, C5-C7 incomplete; T65.222A Toxic effect of tobacco cigarettes, intentional self-harm, initial encounter; E44.0 Moderate protein-calorie malnutrition | CPT/HCPCS: 11042; 11045 ==

== ENCOUNTER → 2018-08-15 | Outpatient (CLI) | payer MEDICARE, MEDICAID ==
[~2018-08-15] MED LIST changes: -ACET325C PO; +ACET325C3 PO
== END ==
LOC: WOUNDCARE 10:34
PROVIDERS: ATTEND Nurse Practitioner
DX: L89.153 Pressure ulcer of sacral region, stage 3 (principal); G82.54 Quadriplegia, C5-C7 incomplete; T65.222A Toxic effect of tobacco cigarettes, intentional self-harm, initial encounter
CPT/HCPCS: 11042

== ENCOUNTER → 2018-08-22 | Outpatient (CLI) | payer MEDICARE, MEDICAID | LOC: WOUNDCARE 09:53 | PROVIDERS: ATTEND Nurse Practitioner | DX: G82.54 Quadriplegia, C5-C7 incomplete (principal); L89.153 Pressure ulcer of sacral region, stage 3; E44.0 Moderate protein-calorie malnutrition; T65.222A Toxic effect of tobacco cigarettes, intentional self-harm, initial encounter | CPT/HCPCS: 17250 ==

== ENCOUNTER → 2018-08-29 | Outpatient (CLI) | payer MEDICARE, MEDICAID | LOC: WOUNDCARE 08:23 | PROVIDERS: ATTEND Nurse Practitioner | DX: G82.54 Quadriplegia, C5-C7 incomplete (principal); L89.153 Pressure ulcer of sacral region, stage 3; T65.222A Toxic effect of tobacco cigarettes, intentional self-harm, initial encounter; E44.0 Moderate protein-calorie malnutrition | CPT/HCPCS: 11042; 87070; 87075; 87205 ==

== ENCOUNTER → 2018-09-07 | Outpatient (CLI) | payer MEDICARE, MEDICAID | LOC: WOUNDCARE 08:17 | PROVIDERS: ATTEND Nurse Practitioner | DX: L89.153 Pressure ulcer of sacral region, stage 3 (principal); G82.54 Quadriplegia, C5-C7 incomplete; E44.0 Moderate protein-calorie malnutrition; T65.222A Toxic effect of tobacco cigarettes, intentional self-harm, initial encounter | CPT/HCPCS: 11042 ==

== ENCOUNTER → 2018-09-12 | Outpatient (CLI) | payer MEDICARE, MEDICAID | LOC: WOUNDCARE 09:03 | PROVIDERS: ATTEND Nurse Practitioner | DX: L89.153 Pressure ulcer of sacral region, stage 3 (principal); G82.54 Quadriplegia, C5-C7 incomplete; E44.0 Moderate protein-calorie malnutrition; T65.222A Toxic effect of tobacco cigarettes, intentional self-harm, initial encounter | CPT/HCPCS: 11042 ==

== ENCOUNTER → 2018-09-19 | Outpatient (CLI) | payer MEDICARE, MEDICAID | LOC: WOUNDCARE 08:59 | PROVIDERS: ATTEND Nurse Practitioner | DX: L89.153 Pressure ulcer of sacral region, stage 3 (principal); G82.54 Quadriplegia, C5-C7 incomplete; E44.0 Moderate protein-calorie malnutrition; T65.222A Toxic effect of tobacco cigarettes, intentional self-harm, initial encounter | CPT/HCPCS: 15271 ==

== ENCOUNTER → 2018-09-26 | Outpatient (CLI) | payer MEDICARE, MEDICAID ==
[~2018-09-26] MED LIST changes: -SENN-120 PO; +SENN-233 PO
== END ==
LOC: WOUNDCARE 08:31
PROVIDERS: ATTEND Nurse Practitioner
DX: L89.153 Pressure ulcer of sacral region, stage 3 (principal); G82.54 Quadriplegia, C5-C7 incomplete; T65.222A Toxic effect of tobacco cigarettes, intentional self-harm, initial encounter; E44.0 Moderate protein-calorie malnutrition
CPT/HCPCS: 11042

== ENCOUNTER → 2018-10-03 | Outpatient (CLI) | payer MEDICARE, MEDICAID | LOC: WOUNDCARE 08:33 | PROVIDERS: ATTEND Nurse Practitioner | DX: G82.54 Quadriplegia, C5-C7 incomplete (principal); L89.153 Pressure ulcer of sacral region, stage 3; T65.222A Toxic effect of tobacco cigarettes, intentional self-harm, initial encounter; E44.0 Moderate protein-calorie malnutrition | CPT/HCPCS: 15271 ==

== ENCOUNTER → 2018-10-10 | Outpatient (CLI) | payer MEDICARE, MEDICAID | LOC: WOUNDCARE 08:24 | PROVIDERS: ATTEND Nurse Practitioner | DX: G82.54 Quadriplegia, C5-C7 incomplete (principal); L89.153 Pressure ulcer of sacral region, stage 3; T65.222A Toxic effect of tobacco cigarettes, intentional self-harm, initial encounter; E44.0 Moderate protein-calorie malnutrition | CPT/HCPCS: 15271; 87070; 87075; 87077; 87205 ==

== ENCOUNTER → 2018-10-17 | Outpatient (CLI) | payer MEDICARE, MEDICAID | LOC: WOUNDCARE 08:27 | PROVIDERS: ATTEND Nurse Practitioner | DX: L89.153 Pressure ulcer of sacral region, stage 3 (principal); G82.54 Quadriplegia, C5-C7 incomplete; T65.222A Toxic effect of tobacco cigarettes, intentional self-harm, initial encounter; E44.0 Moderate protein-calorie malnutrition | CPT/HCPCS: 11042 ==

== ENCOUNTER → 2018-10-24 | Outpatient (CLI) | payer MEDICARE, MEDICAID | LOC: WOUNDCARE 08:30 | PROVIDERS: ATTEND Nurse Practitioner | DX: G82.54 Quadriplegia, C5-C7 incomplete (principal); L89.153 Pressure ulcer of sacral region, stage 3; T65.222A Toxic effect of tobacco cigarettes, intentional self-harm, initial encounter; E44.0 Moderate protein-calorie malnutrition ==

== ENCOUNTER → 2018-10-31 | Outpatient (CLI) | payer MEDICARE, MEDICAID | LOC: WOUNDCARE 08:03 | PROVIDERS: ATTEND Nurse Practitioner | DX: L89.153 Pressure ulcer of sacral region, stage 3 (principal); G82.54 Quadriplegia, C5-C7 incomplete; T65.222A Toxic effect of tobacco cigarettes, intentional self-harm, initial encounter; E44.0 Moderate protein-calorie malnutrition ==

== ENCOUNTER → 2018-11-07 | Outpatient (CLI) | payer MEDICARE, MEDICAID | LOC: WOUNDCARE 08:33 | PROVIDERS: ATTEND Nurse Practitioner | DX: L89.153 Pressure ulcer of sacral region, stage 3 (principal); G82.54 Quadriplegia, C5-C7 incomplete; T65.222A Toxic effect of tobacco cigarettes, intentional self-harm, initial encounter; E44.0 Moderate protein-calorie malnutrition | CPT/HCPCS: 11042; 87070; 87075; 87077; 87205 ==

== ENCOUNTER → 2018-11-14 | Outpatient (CLI) | payer MEDICARE, MEDICAID | LOC: WOUNDCARE 08:36 | PROVIDERS: ATTEND Nurse Practitioner | DX: L89.153 Pressure ulcer of sacral region, stage 3 (principal); T65.222A Toxic effect of tobacco cigarettes, intentional self-harm, initial encounter; E44.0 Moderate protein-calorie malnutrition; G82.54 Quadriplegia, C5-C7 incomplete | CPT/HCPCS: 99212 ==

== ENCOUNTER → 2018-11-21 | Outpatient (CLI) | payer MEDICARE, MEDICAID | LOC: WOUNDCARE 08:24 | PROVIDERS: ATTEND Nurse Practitioner | DX: G82.54 Quadriplegia, C5-C7 incomplete (principal); L89.153 Pressure ulcer of sacral region, stage 3; T65.222A Toxic effect of tobacco cigarettes, intentional self-harm, initial encounter; E44.0 Moderate protein-calorie malnutrition | CPT/HCPCS: 99213 ==

== ENCOUNTER → 2018-11-28 | Outpatient (CLI) | payer MEDICARE, MEDICAID | LOC: WOUNDCARE 08:28 | PROVIDERS: ATTEND Nurse Practitioner | DX: G82.54 Quadriplegia, C5-C7 incomplete (principal); L89.153 Pressure ulcer of sacral region, stage 3; T65.222A Toxic effect of tobacco cigarettes, intentional self-harm, initial encounter; E44.0 Moderate protein-calorie malnutrition | CPT/HCPCS: 99213 ==

== ENCOUNTER → 2018-12-12 | Outpatient (CLI) | payer MEDICARE, MEDICAID | LOC: WOUNDCARE 08:27 | PROVIDERS: ATTEND Nurse Practitioner | DX: G82.54 Quadriplegia, C5-C7 incomplete (principal); L89.153 Pressure ulcer of sacral region, stage 3; T65.222A Toxic effect of tobacco cigarettes, intentional self-harm, initial encounter; E44.0 Moderate protein-calorie malnutrition | CPT/HCPCS: 99212 ==

== ENCOUNTER → 2019-02-14 | Outpatient (CLI) | payer MEDICARE, MEDICAID ==
--- NOTE | 2019-02-14 17:56 | Diagnostic Imaging Report ---
EXAMINATION: Digital mammogram bilateral Screening. INDICATION: Screening. The current study was also evaluated with a Computer Aided Detection (CAD) system. 3-D tomosynthesis was also performed and reviewed. COMPARISON: There are no prior studies available for comparison. FINDINGS: The fibroglandular tissue in both breasts is heterogeneously dense. This does limit the sensitivity of this exam. There is no primary or secondary sign of malignancy involving either breast. However, there is a roughly 2 cm nodular density overlying the superior aspect of the left pectoralis muscle on the MLO view. This finding cannot be visualized on the craniocaudad view. I suspect that this is secondary to a lymph node or to two lymph nodes. Even so, I would recommend that ultrasound of the left axilla be performed to better evaluate this finding, however. IMPRESSION: Ultrasound of the left axilla would be recommended for further evaluation. ACR BI-RADS Category 0: Incomplete. (Needs additional imaging evaluation). Result letter will be mailed to the patient. Note: At least 10% of breast cancer is not imaged by mammography. Dictated by: Dictated on workstation # [id number]
== END ==
LOC: RAD 09:48
PROVIDERS: ATTEND Family Medicine
DX: Z12.31 Encounter for screening mammogram for malignant neoplasm of breast (principal)
CPT/HCPCS: 77067

== ENCOUNTER → 2019-02-21 | Outpatient (CLI) | payer MEDICARE, MEDICAID ==
--- NOTE | 2019-02-21 11:44 | Diagnostic Imaging Report ---
INDICATION: Left breast density noted on recent screening mammogram in the region of the left axilla. Study is performed for further evaluation. Correlation is made with recent screening study from 02/14/2019. Sonographic interrogation of left axilla was performed. There are 2 lymph nodes in left axilla. The largest measures 2.5 x 0.9 x 2.4 cm. Second node measures 1.3 x 0.9 x 1.8 cm. Both of these have a fatty center with a thin overlying cortex. No other abnormalities are seen. IMPRESSION: BI-RADS category 2 Left axillary lymph nodes, likely accounting for the mammographic density. Patient may return to routine annual screening mammography. ACR BI-RADS Category 2: Benign findings. Dictated by: Dictated on workstation # [id number]
== END ==
LOC: RAD 09:56
PROVIDERS: ATTEND Family Medicine
DX: N63.20 Unspecified lump in the left breast, unspecified quadrant (principal)
CPT/HCPCS: 76642

== ENCOUNTER 2019-02-26 09:53 | Inpatient (IN) | payer MEDICARE, MEDICAID ==
[~2019-02-26] VITALS: Ht 162.6 cm; Wt 63.6 kg
--- NOTE | 2019-02-26 10:00 | NUR ---
wound ullcer right ankle appears clean w/o sighns of infection around it.
--- NOTE | 2019-02-26 10:00 | NUR ---
pt here by w/c from care center. [facility]. [facility] center staff here with pt. pt alert gcs 15. pt currently being txd fo cellulits right leg and is on keflex. pt has ongoing wound right lateral ankle that appars as open ulcer. pt says it is not healing. pt also has open abrased areas x 2 on right leg. after peaking at wounds i placed the bandages back on . right leg is red and swollen. pt with no cute sighns of dyspnea noted. done candi pt at 1013.
--- NOTE | 2019-02-26 10:00 | NUR ---
pt has bandages on the 2 abrased areas on right leg and 1 on the right ankle ulcer. all 3 w/o drainage and clean and dry all though they were all changed this am with today date and time on them all.
[2019-02-26] MEDS ORDERED: LACTATED RINGERS 1,000 ML IV ONE (10:58)
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
--- NOTE | 2019-02-26 11:07 | NUR ---
someone helped pt to bathroom earlier . none got saved.
--- NOTE | 2019-02-26 11:20 | NUR ---
i will be doing bolus at 500/hr as delicate vein . i will try to raise rate later.
--- NOTE | 2019-02-26 11:37 | NUR ---
ivf to 750/hr.
--- NOTE | 2019-02-26 11:49 | Diagnostic Imaging Report ---
INDICATION: Cellulitis. Time of exam 11:38 AM No prior studies are available for comparison. The heart size is normal. The lungs are clear. The pulmonary vascularity is normal. No infiltrate, effusion or pneumothorax is seen. There are postop changes in the lower cervical spine. IMPRESSION: No acute cardiopulmonary process is detected. Dictated by: Dictated on workstation # [id number]
[2019-02-26 12:03] LABS: BASOPHILS # (AUTO) 0.1 10^3/uL (0.0-0.1); BASOPHILS % (AUTO) 1 % (0-10); EOSINOPHILS # (AUTO) 0.3 10^3/uL (0.0-0.3); EOSINOPHILS % (AUTO) 3 % (0-10); HEMATOCRIT 37 % (35-52); LYMPHOCYTES # (AUTO) 3.2 X 10^3 (1.0-4.0); LYMPHOCYTES % (AUTO) 29 % (12-44); MEAN CORPUSCULAR HEMOGLOBIN 30 PG (25-34); MEAN CORPUSCULAR HGB CONC 33 G/DL (32-36); MEAN CORPUSCULAR VOLUME 91 FL (80-99); MEAN PLATELET VOLUME 9.6 FL (7.4-10.4); MONOCYTES # (AUTO) 0.9 X 10^3 (0.0-1.0); MONOCYTES % (AUTO) 8 % (0-12); NEUTROPHILS # (AUTO) 6.7 X 10^3 (1.8-7.8); NEUTROPHILS % (AUTO) 60 % (42-75); PLATELET COUNT 345 10^3/uL (130-400); RED CELL DISTRIBUTION WIDTH 13.7 % (10.0-14.5)
[2019-02-26 12:16] LABS: PROTHROMBIN TIME PATIENT 13.8 SEC (12.2-14.7)
[2019-02-26 12:17] LABS: ALANINE AMINOTRANSFERASE 16 U/L (0-55); ALBUMIN 3.6 GM/DL (3.2-4.5); ALKALINE PHOSPHATASE 95 U/L (40-136); BILIRUBIN,TOTAL 0.3 MG/DL (0.1-1.0); BUN/CREATININE RATIO 14; CALCIUM 9.8 MG/DL (8.5-10.1); CARBON DIOXIDE 27 MMOL/L (21-32); CHLORIDE 99 MMOL/L (98-107); CREATININE SERUM 0.59 MG/DL (0.60-1.30); GFR ESTIMATED > 60; GLUCOSE 93 MG/DL (70-105); POTASSIUM 4.1 MMOL/L (3.6-5.0); SODIUM 138 MMOL/L (135-145); TOTAL PROTEIN 8.2 GM/DL (6.4-8.2)
[2019-02-26] MEDS ORDERED: cefTRIAXone FOR IV USE 1,000 MG in WATER (STERILE) FOR INJECTION 10 ML IV ONE (12:30)
--- NOTE | 2019-02-26 12:55 | NUR ---
bolus completed. u/a in progress in the room.
--- NOTE | 2019-02-26 13:00 | NUR ---
bp machine is 166/128 ausc hr 68 reg ausc resp 16 normal recheck temp 97.7 p ox r/a is 97.pt gcs 15 and care center staff must have left earlier. pt also inc ua.
--- NOTE | 2019-02-26 13:00 | NUR ---
pt remains alert gcs 15. care center staff must have left awhile ago. pt became agitated and screaming cause she cant find her cell phone. dr came in room called pt number and it was in a pocket on her w/c. wrote note for me ativan 0.5 mg iv.
[2019-02-26] MEDS ORDERED: LORazepam INJ 2 MG/ML (ATIVAN) VIAL IVP PRN (13:15)
--- NOTE | 2019-02-26 13:25 | NUR ---
admit nurse called here for report. I gave report to her. spoke with regulo. someone will take pt to admit room micaela.
--- NOTE | 2019-02-26 13:33 | NUR ---
i am taking pt to admit room by her own w/c.
--- NOTE | 2019-02-26 13:38 | Diagnostic Imaging Report ---
PROCEDURE: US right lower extremity venous. TECHNIQUE: Multiple real-time grayscale images were obtained over the right lower extremity in various projections. Additional spectral analysis and color Doppler duplex images were also obtained. INDICATION: Cellulitis. FINDINGS: There is no evidence of right lower extremity DVT. The right lower extremity deep venous system demonstrates normal compressibility with normal response to augmentation and Valsalva. No fluid collection or mass is seen. IMPRESSION: No evidence of right lower extremity DVT. Dictated by: Dictated on workstation # [id number]
[2019-02-26] MEDS ORDERED: VANCOMYCIN 1250 MG/NS 250 ML IVPB IV NR ×2 (14:00)
[2019-02-26] MEDS ORDERED: ONDANSETRON 4 MG/2 ML (SDV) Z0FRAN IVP PRN (14:00)
--- NOTE | 2019-02-26 14:06 | NUR ---
VANCOMYCIN DOSING SCR 0.59 (USED 0.7); CRCL ~ 76; BOLUS VANC 20 MG/KG X 61 KG ~ 1250 MG THEN VANC 15 MG/KG ~ 1 GM Q12H CHECK TROUGH LEVEL 02/28 AT 1300 BEFORE 4TH DOSE HOLD DOSE AND CONTACT PHARMACY IF LEVEL IS GREATER THAN 20
[2019-02-26] MEDS ORDERED: MULT1TAB69 PO (14:11)
[2019-02-26] MEDS ORDERED: HYDR-3816 PO (14:11)
[2019-02-26] MEDS ORDERED: METH85CR TP (14:25)
[2019-02-26] MEDS ORDERED: GUAI5SYR PO (14:25)
[2019-02-26] MEDS ORDERED: CEPH-507 PO (14:28)
[2019-02-26] MEDS ORDERED: DOXY100C2 PO (14:28)
--- NOTE | 2019-02-26 14:31 | NUR ---
COMPLETED MED REC USING THE ORDER SUMMARY REPORT FROM [facility]. THE LIST THAT I WENT OFF OF IS ATTACHED TO THE PTS CHART AT THE NURSING STATION.
[2019-02-26 14:50] VITALS: BP 146/75
[2019-02-26 15:23] VITALS: BP 146/75
--- NOTE | 2019-02-26 15:43 | NUR ---
NOVA SCHULTZ admitted to room 414-1, with an admitting diagnosis of CELLULITIS, on 02/26/19 from ED [facility] , accompanied by STAFF.NOVA SCHULTZ introduced to surroundings, call light, bed controls, phone, TV, temperature control, lights, meal times, smoking policy, visitor policy, side rail policy, bathrooms and showers. Patient Rights given to patient in the handbook. NOVA SCHULTZ verbalizes understanding that [facility] is not responsible for the loss or damage to any personal effects or valuables that are kept in the patients possession during their hospitalization. The following Patient Care Plans were discussed with the PATIENT: Discharge Planning, MEDICATIONS ,PAIN MANAGEMENT, and DEHYDRATION. NOVA SCHULTZ verbalizes understanding of Interdisciplinary Patient Education. Patient and/or family were informed about the Rapid Response Team and its purpose.
[2019-02-26 15:50] VITALS: BP 152/76
[2019-02-26] MEDS: LACTATED RINGERS 1,000 ML IV SCH (17:15)
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
[2019-02-26] MEDS ORDERED: DOCUSATE SODIUM 100 MG (COLACE) CAP PO PRN (19:00)
[2019-02-26] MEDS ORDERED: SALIVA STIMULANT MOUTH SPRAY (BIOTENE) 1.5 OZ MM SCH (19:00)
[2019-02-26] MEDS ORDERED: RT-ALBUTEROL SULF 2.5 MG/3 ML PRE-MIX VIAL IH PRN (19:00)
[2019-02-26 19:37] VITALS: BP 156/82
[2019-02-26] MEDS: ASCORBIC ACID (VIT C) 500 MG TABLET PO SCH (20:01)
[2019-02-26] MEDS: ENOXAPARIN 40 MG/0.4 ML (LOVENOX) SYR SC SCH (20:01)
[2019-02-27] VITALS: BP 169/82
[2019-02-27] MEDS: LACTATED RINGERS 1,000 ML IV SCH ×2 (01:50→13:39)
[2019-02-27] MEDS: VANCOMYCIN 1 GM/NS 250 ML IVPB IV SCH ×4 (01:50→13:39)
[2019-02-27 04:00] VITALS: BP 145/85
[2019-02-27 05:26] LABS: BASOPHILS % (AUTO) 1 % (0-10); EOSINOPHILS # (AUTO) 0.3 10^3/uL (0.0-0.3); EOSINOPHILS % (AUTO) 3 % (0-10); HEMATOCRIT 33 % (35-52); LYMPHOCYTES # (AUTO) 2.8 X 10^3 (1.0-4.0); LYMPHOCYTES % (AUTO) 33 % (12-44); MEAN CORPUSCULAR HEMOGLOBIN 31 PG (25-34); MEAN CORPUSCULAR HGB CONC 34 G/DL (32-36); MEAN CORPUSCULAR VOLUME 91 FL (80-99); MEAN PLATELET VOLUME 9.7 FL (7.4-10.4); MONOCYTES # (AUTO) 0.8 X 10^3 (0.0-1.0); MONOCYTES % (AUTO) 9 % (0-12); NEUTROPHILS # (AUTO) 4.8 X 10^3 (1.8-7.8); NEUTROPHILS % (AUTO) 55 % (42-75); PLATELET COUNT 337 10^3/uL (130-400); RED CELL DISTRIBUTION WIDTH 13.5 % (10.0-14.5); WHITE BLOOD COUNT 8.7 10^3/uL (4.3-11.0)
[2019-02-27 05:43] LABS: BUN/CREATININE RATIO 13; CALCIUM 9.1 MG/DL (8.5-10.1); CARBON DIOXIDE 27 MMOL/L (21-32); CHLORIDE 102 MMOL/L (98-107); CREATININE SERUM 0.56 MG/DL (0.60-1.30); GFR ESTIMATED > 60; GLUCOSE 108 MG/DL (70-105); POTASSIUM 4.4 MMOL/L (3.6-5.0); SODIUM 138 MMOL/L (135-145)
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
[2019-02-27 08:00] VITALS: BP 160/76
[2019-02-27] MEDS: ZINC SULFATE 220 MG CAPSULE PO SCH (08:46)
[2019-02-27] MEDS: ASCORBIC ACID (VIT C) 500 MG TABLET PO SCH ×2 (08:46→20:35)
[2019-02-27] MEDS: LACTOBACILLUS ACIDOPHILUS (PROBIOTIC) CAPSULE PO SCH (08:46)
[2019-02-27] MEDS: LEVOTHYROXINE 50 MCG (LEVOTHROID) TAB PO SCH (08:46)
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
[2019-02-27 12:00] VITALS: BP 136/84
[2019-02-27] MEDS ORDERED: cefTRIAXone 1,000 MG/SWFI 10 ML IV PUSH IV SCH ×2 (13:00)
--- NOTE | 2019-02-27 13:35 | Diagnostic Imaging Report ---
INDICATION: Peripheral arterial disease. IMPRESSION: Segmental pressures were performed. The ankle brachial indices measure 1.08 on the right and 1.07 on the left. Dictated by: Dictated on workstation # [id number]
[2019-02-27 16:06] VITALS: BP 153/88
[2019-02-27] MEDS: ENOXAPARIN 40 MG/0.4 ML (LOVENOX) SYR SC SCH (19:18)
[2019-02-27 20:38] VITALS: BP 153/70
[2019-02-27] MEDS: ACETAMINOPHEN 500 MG TAB (TYLENOL) PO PRN (22:52)
[2019-02-28] VITALS: BP 158/81
[2019-02-28] MEDS: LACTATED RINGERS 1,000 ML IV SCH (00:27)
[2019-02-28] MEDS: VANCOMYCIN 1 GM/NS 250 ML IVPB IV SCH ×2 (01:33)
[2019-02-28 04:00] VITALS: BP 136/73
[2019-02-28] MEDS: ACETAMINOPHEN 500 MG TAB (TYLENOL) PO PRN (04:05)
[2019-02-28 07:00] LABS: MEAN PLATELET VOLUME 9.8 FL (7.4-10.4); RED CELL DISTRIBUTION WIDTH 13.6 % (10.0-14.5); WHITE BLOOD COUNT 9.6 10^3/uL (4.3-11.0)
[2019-02-28 07:18] LABS: CARBON DIOXIDE 27 MMOL/L (21-32); CHLORIDE 102 MMOL/L (98-107); SODIUM 140 MMOL/L (135-145)
[2019-02-28 07:19] LABS: BUN/CREATININE RATIO 13; CALCIUM 9.2 MG/DL (8.5-10.1); CREATININE SERUM 0.56 MG/DL (0.60-1.30); GFR ESTIMATED > 60; GLUCOSE 100 MG/DL (70-105)
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
[2019-02-28] MEDS ORDERED: CEFD300C3 PO (07:36)
--- NOTE | 2019-02-28 07:37 | Discharge Inst-Skilled Nursing ---
Discharge Inst-Skilled NF Patient Instructions Patient Problems: Cellulitis of right leg. Bullous impetigo Patient Instructions: 2 office on Tuesday Consult/Follow Up/Orders Skilled NF Admit to: [facility] Certification (SNF) I certify that SNF services are required to be given on an inpatient basis because of the above named patient's need for long-term care on a continuing basis for the conditions(s) for which he/she was receiving inpatient hospital services prior to his/her transfer to the SNF. Oxygen Delivery Method: Room Air Daily Activity as Tolerated: Yes New & Resume Previous Orders Sammy Sagastume Feb 28, 2019 07:36 SAMMY SAGASTUME DO Feb 28, 2019 07:37
--- NOTE | 2019-02-28 07:39 | NUR ---
PATIENT WAS IN BED WITH RN AND AIDE IN THE ROOM DOING A DRESSING CHANGE ON PATIENTS RIGHT LEG: RT ASKED PATIENT IF SHE NEEDED ANYTHING AND SHE SAID SHE NEEDED TO USE THE RESTROOM, RT EXPLAINED THAT THE AIDE AND RN WILL TAKE HER SOON THEY ARE DONE WITH THE DRESSING CHANGE. PATIENT DID NOT NEED ANYTHING ELSE AND NO RESP NEEDS NOTED AT THIS TIME.
[2019-02-28 08:00] VITALS: BP 153/70
[2019-02-28] MEDS: LACTOBACILLUS ACIDOPHILUS (PROBIOTIC) CAPSULE PO SCH (08:29)
[2019-02-28] MEDS: LEVOTHYROXINE 50 MCG (LEVOTHROID) TAB PO SCH (08:29)
[2019-02-28] MEDS: ASCORBIC ACID (VIT C) 500 MG TABLET PO SCH (08:29)
[2019-02-28] MEDS: ZINC SULFATE 220 MG CAPSULE PO SCH (08:29)
--- NOTE | 2019-02-28 09:23 | NUR ---
CM/SS discharge information sent to [facility]. They will transport this day at 1330/1400.
--- NOTE | 2019-02-28 10:37 | NUR ---
gave report to Ashly at [facility]. patient trasport scheduled to be here at 1130am 02/28/19
[2019-02-28] MEDS ORDERED: TROUGH ORDER-PHARMACY XX NR (13:00)
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
== END 2019-02-28 11:28 | DRG 602 ==
LOC: EDUNIT# 09:53 → ER 09:54 → 4TH 12:36
PROVIDERS: ADMIT Family Medicine; ATTEND Family Medicine
DX: L03.115 Cellulitis of right lower limb (principal); L01.03 Bullous impetigo; L97.219 Non-pressure chronic ulcer of right calf with unspecified severity; S14.159S Other incomplete lesion at unspecified level of cervical spinal cord, sequela; G82.50 Quadriplegia, unspecified; G81.10 Spastic hemiplegia affecting unspecified side; K59.2 Neurogenic bowel, not elsewhere classified; N31.9 Neuromuscular dysfunction of bladder, unspecified; E03.9 Hypothyroidism, unspecified; K59.09 Other constipation; F32.9 Major depressive disorder, single episode, unspecified; J44.9 Chronic obstructive pulmonary disease, unspecified; F17.210 Nicotine dependence, cigarettes, uncomplicated; L40.9 Psoriasis, unspecified; V89.2XXS Person injured in unspecified motor-vehicle accident, traffic, sequela; Z87.820 Personal history of traumatic brain injury; Z99.3 Dependence on wheelchair; Z86.718 Personal history of other venous thrombosis and embolism
CPT/HCPCS: 36415; 71045; 80048; 80053; 83605; 85025; 85027; 85610; 85730; 87040; 93923; 94760

== ENCOUNTER → 2019-04-04 | Outpatient (CLI) | payer MEDICARE, MEDICAID ==
[~2019-04-04] MED LIST changes: +CEFD300C3 PO; +CEPH-507 PO; +DOXY100C2 PO; +GUAI5SYR PO; +HYDR-3816 PO; +METH85CR TP; +MULT1TAB69 PO
== END ==
LOC: WOUNDCARE 12:29
PROVIDERS: ATTEND Surgery
DX: L89.513 Pressure ulcer of right ankle, stage 3 (principal); L89.893 Pressure ulcer of other site, stage 3; G82.54 Quadriplegia, C5-C7 incomplete; T65.222A Toxic effect of tobacco cigarettes, intentional self-harm, initial encounter; F17.218 Nicotine dependence, cigarettes, with other nicotine-induced disorders
CPT/HCPCS: 99214

== ENCOUNTER → 2019-04-04 | Outpatient (CLI) | payer MEDICARE, MEDICAID ==
--- NOTE | 2019-04-04 16:57 | Diagnostic Imaging Report ---
EXAMINATION: Right ankle at 02:32 p.m. INDICATION: Pressure ulcer, right ankle. FINDINGS: Three views were obtained. There are no prior studies available for comparison. There is no fracture, dislocation, or acute bony abnormality evident. There is no sign of bony destruction to suggest osteomyelitis either. There does seem to be soft tissue edema along the lateral aspect of the hind foot, however. The ankle mortise is not widened and the talar dome is smooth. IMPRESSION: 1. There is no evidence for an acute bony abnormality. In particular, there is no sign of bony destruction to indicate osteomyelitis. 2. If clinical concern regarding osteomyelitis persists and further imaging is desired, then MRI will be recommended. Dictated by: Dictated on workstation # [id number]
== END ==
LOC: RAD 14:11
PROVIDERS: ATTEND Surgery
DX: L89.513 Pressure ulcer of right ankle, stage 3 (principal); L89.893 Pressure ulcer of other site, stage 3; G82.54 Quadriplegia, C5-C7 incomplete; T65.222A Toxic effect of tobacco cigarettes, intentional self-harm, initial encounter; F17.218 Nicotine dependence, cigarettes, with other nicotine-induced disorders
CPT/HCPCS: 73610

== ENCOUNTER → 2019-04-11 | Outpatient (CLI) | payer MEDICARE, MEDICAID | LOC: WOUNDCARE 14:09 | PROVIDERS: ATTEND Surgery | DX: L89.513 Pressure ulcer of right ankle, stage 3 (principal); G82.54 Quadriplegia, C5-C7 incomplete; T65.222A Toxic effect of tobacco cigarettes, intentional self-harm, initial encounter; F17.218 Nicotine dependence, cigarettes, with other nicotine-induced disorders; I96 Gangrene, not elsewhere classified | CPT/HCPCS: 99213 ==

== ENCOUNTER → 2019-04-18 | Outpatient (CLI) | payer MEDICARE, MEDICAID | LOC: WOUNDCARE 13:38 | PROVIDERS: ATTEND Surgery | DX: L89.150 Pressure ulcer of sacral region, unstageable (principal); L89.513 Pressure ulcer of right ankle, stage 3; G82.54 Quadriplegia, C5-C7 incomplete; T65.222A Toxic effect of tobacco cigarettes, intentional self-harm, initial encounter; F17.218 Nicotine dependence, cigarettes, with other nicotine-induced disorders; I96 Gangrene, not elsewhere classified | CPT/HCPCS: 99213 ==

== ENCOUNTER → 2019-04-25 | Outpatient (CLI) | payer MEDICARE, MEDICAID | LOC: WOUNDCARE 13:58 | PROVIDERS: ATTEND Surgery | DX: L89.154 Pressure ulcer of sacral region, stage 4 (principal); L89.512 Pressure ulcer of right ankle, stage 2; G82.53 Quadriplegia, C5-C7 complete; T65.222A Toxic effect of tobacco cigarettes, intentional self-harm, initial encounter; F17.218 Nicotine dependence, cigarettes, with other nicotine-induced disorders; I96 Gangrene, not elsewhere classified | CPT/HCPCS: 11043 ==

== ENCOUNTER → 2019-05-02 | Outpatient (CLI) | payer MEDICARE, MEDICAID | LOC: WOUNDCARE 08:34 | PROVIDERS: ATTEND Surgery | DX: I96 Gangrene, not elsewhere classified (principal); L89.154 Pressure ulcer of sacral region, stage 4; L89.512 Pressure ulcer of right ankle, stage 2; G82.54 Quadriplegia, C5-C7 incomplete | CPT/HCPCS: 11043; 11046 ==

== ENCOUNTER → 2019-05-07 | Outpatient (CLI) | payer MEDICARE, MEDICAID | LOC: WOUNDCARE 13:59 | PROVIDERS: ATTEND Surgery | DX: L89.154 Pressure ulcer of sacral region, stage 4 (principal); L89.512 Pressure ulcer of right ankle, stage 2; G82.54 Quadriplegia, C5-C7 incomplete; I96 Gangrene, not elsewhere classified | CPT/HCPCS: 11042; 11045 ==

== ENCOUNTER → 2019-05-09 | Outpatient (CLI) | payer MEDICARE, MEDICAID ==
[2019-05-09 12:56] LABS: BASOPHILS % (AUTO) 0 % (0-10); EOSINOPHILS # (AUTO) 0.3 10^3/uL (0.0-0.3); EOSINOPHILS % (AUTO) 4 % (0-10); HEMATOCRIT 36 % (35-52); HEMOGLOBIN 11.6 G/DL (11.5-16.0); LYMPHOCYTES # (AUTO) 2.5 X 10^3 (1.0-4.0); LYMPHOCYTES % (AUTO) 26 % (12-44); MEAN CORPUSCULAR HEMOGLOBIN 29 PG (25-34); MEAN CORPUSCULAR HGB CONC 32 G/DL (32-36); MEAN CORPUSCULAR VOLUME 92 FL (80-99); MEAN PLATELET VOLUME 10.2 FL (7.4-10.4); MONOCYTES # (AUTO) 0.5 X 10^3 (0.0-1.0); MONOCYTES % (AUTO) 5 % (0-12); NEUTROPHILS # (AUTO) 6.4 X 10^3 (1.8-7.8); NEUTROPHILS % (AUTO) 65 % (42-75); PLATELET COUNT 271 10^3/uL (130-400); RED CELL DISTRIBUTION WIDTH 14.9 % (10.0-14.5); WHITE BLOOD COUNT 9.8 10^3/uL (4.3-11.0)
[2019-05-09 13:20] LABS: ALANINE AMINOTRANSFERASE 13 U/L (0-55); ALBUMIN 3.6 GM/DL (3.2-4.5); ALKALINE PHOSPHATASE 82 U/L (40-136); BILIRUBIN,TOTAL 0.3 MG/DL (0.1-1.0); BUN/CREATININE RATIO 42; CALCIUM 9.2 MG/DL (8.5-10.1); CARBON DIOXIDE 27 MMOL/L (21-32); CHLORIDE 102 MMOL/L (98-107); CREATININE SERUM 0.66 MG/DL (0.60-1.30); GFR ESTIMATED > 60; GLUCOSE 80 MG/DL (70-105); POTASSIUM 4.1 MMOL/L (3.6-5.0); SODIUM 137 MMOL/L (135-145); TOTAL PROTEIN 7.3 GM/DL (6.4-8.2)
== END ==
LOC: LABNPT 12:00
PROVIDERS: ATTEND Family Medicine
DX: Z01.89 Encounter for other specified special examinations (principal)
CPT/HCPCS: 80053; 84134; 85025

== ENCOUNTER → 2019-05-16 | Outpatient (CLI) | payer MEDICARE, MEDICAID | LOC: WOUNDCARE 13:38 | PROVIDERS: ATTEND Surgery | DX: L89.154 Pressure ulcer of sacral region, stage 4 (principal); L89.512 Pressure ulcer of right ankle, stage 2; G82.54 Quadriplegia, C5-C7 incomplete; I96 Gangrene, not elsewhere classified | CPT/HCPCS: 11043; 11046 ==

== ENCOUNTER → 2019-05-23 | Outpatient (CLI) | payer MEDICARE, MEDICAID | LOC: WOUNDCARE 13:37 | PROVIDERS: ATTEND Surgery | DX: L89.154 Pressure ulcer of sacral region, stage 4 (principal); G82.54 Quadriplegia, C5-C7 incomplete; T65.222A Toxic effect of tobacco cigarettes, intentional self-harm, initial encounter; I96 Gangrene, not elsewhere classified; F17.218 Nicotine dependence, cigarettes, with other nicotine-induced disorders | CPT/HCPCS: 11042 ==

== ENCOUNTER → 2019-05-30 | Outpatient (CLI) | payer MEDICARE, MEDICAID | LOC: WOUNDCARE 13:46 | PROVIDERS: ATTEND Surgery | DX: I96 Gangrene, not elsewhere classified (principal); L89.154 Pressure ulcer of sacral region, stage 4; G82.54 Quadriplegia, C5-C7 incomplete; T65.222A Toxic effect of tobacco cigarettes, intentional self-harm, initial encounter; F17.218 Nicotine dependence, cigarettes, with other nicotine-induced disorders | CPT/HCPCS: 11042; 11045 ==

== ENCOUNTER → 2019-06-06 | Outpatient (CLI) | payer MEDICARE, MEDICAID | LOC: WOUNDCARE 13:27 | PROVIDERS: ATTEND Surgery | DX: L89.154 Pressure ulcer of sacral region, stage 4 (principal); G82.54 Quadriplegia, C5-C7 incomplete; T65.222A Toxic effect of tobacco cigarettes, intentional self-harm, initial encounter; F17.219 Nicotine dependence, cigarettes, with unspecified nicotine-induced disorders; I96 Gangrene, not elsewhere classified | CPT/HCPCS: 11042 ==

== ENCOUNTER → 2019-06-13 | Outpatient (CLI) | payer MEDICARE, MEDICAID | LOC: WOUNDCARE 13:31 | PROVIDERS: ATTEND Surgery | DX: L89.154 Pressure ulcer of sacral region, stage 4 (principal); G82.54 Quadriplegia, C5-C7 incomplete; T65.222A Toxic effect of tobacco cigarettes, intentional self-harm, initial encounter; F17.218 Nicotine dependence, cigarettes, with other nicotine-induced disorders; I96 Gangrene, not elsewhere classified | CPT/HCPCS: 11043 ==

== ENCOUNTER → 2019-06-20 | Outpatient (CLI) | payer MEDICARE, MEDICAID | LOC: WOUNDCARE 13:46 | PROVIDERS: ATTEND Surgery | DX: L89.154 Pressure ulcer of sacral region, stage 4 (principal); G82.54 Quadriplegia, C5-C7 incomplete; T65.222A Toxic effect of tobacco cigarettes, intentional self-harm, initial encounter; F17.218 Nicotine dependence, cigarettes, with other nicotine-induced disorders; I96 Gangrene, not elsewhere classified; L92.8 Other granulomatous disorders of the skin and subcutaneous tissue | CPT/HCPCS: 11042; 87070; 87077; 87186; 87205 ==

== ENCOUNTER → 2019-06-27 | Outpatient (CLI) | payer MEDICARE, MEDICAID | LOC: WOUNDCARE 13:50 | PROVIDERS: ATTEND Surgery | DX: L89.154 Pressure ulcer of sacral region, stage 4 (principal); G82.54 Quadriplegia, C5-C7 incomplete; T65.222A Toxic effect of tobacco cigarettes, intentional self-harm, initial encounter; F17.218 Nicotine dependence, cigarettes, with other nicotine-induced disorders; L92.8 Other granulomatous disorders of the skin and subcutaneous tissue; I96 Gangrene, not elsewhere classified | CPT/HCPCS: 11043; 97605 ==

== ENCOUNTER → 2019-07-04 | Outpatient (CLI) | payer MEDICARE, MEDICAID | LOC: WOUNDCARE 13:45 | PROVIDERS: ATTEND Surgery | DX: I96 Gangrene, not elsewhere classified (principal); L89.154 Pressure ulcer of sacral region, stage 4; G82.53 Quadriplegia, C5-C7 complete; T65.222A Toxic effect of tobacco cigarettes, intentional self-harm, initial encounter; F17.218 Nicotine dependence, cigarettes, with other nicotine-induced disorders; L92.8 Other granulomatous disorders of the skin and subcutaneous tissue | CPT/HCPCS: 11042; 97605 ==

== ENCOUNTER → 2019-07-11 | Outpatient (CLI) | payer MEDICARE, MEDICAID | LOC: WOUNDCARE 13:48 | PROVIDERS: ATTEND Surgery | DX: L89.154 Pressure ulcer of sacral region, stage 4 (principal); G82.53 Quadriplegia, C5-C7 complete; T65.222A Toxic effect of tobacco cigarettes, intentional self-harm, initial encounter; L92.8 Other granulomatous disorders of the skin and subcutaneous tissue; I96 Gangrene, not elsewhere classified; F17.218 Nicotine dependence, cigarettes, with other nicotine-induced disorders | CPT/HCPCS: 11042; 97605 ==

== ENCOUNTER → 2019-07-16 | Outpatient (CLI) | payer MEDICARE, MEDICAID | LOC: WOUNDCARE 13:22 | PROVIDERS: ATTEND Surgery | DX: L89.154 Pressure ulcer of sacral region, stage 4 (principal); G82.54 Quadriplegia, C5-C7 incomplete; T65.222A Toxic effect of tobacco cigarettes, intentional self-harm, initial encounter; F17.218 Nicotine dependence, cigarettes, with other nicotine-induced disorders; L92.8 Other granulomatous disorders of the skin and subcutaneous tissue; I96 Gangrene, not elsewhere classified | CPT/HCPCS: 97605 ==

== ENCOUNTER → 2019-07-23 | Outpatient (CLI) | payer MEDICARE, MEDICAID | LOC: WOUNDCARE 14:17 | PROVIDERS: ATTEND Surgery | DX: L89.154 Pressure ulcer of sacral region, stage 4 (principal); G82.54 Quadriplegia, C5-C7 incomplete; L92.8 Other granulomatous disorders of the skin and subcutaneous tissue; I96 Gangrene, not elsewhere classified; T65.222A Toxic effect of tobacco cigarettes, intentional self-harm, initial encounter; F17.218 Nicotine dependence, cigarettes, with other nicotine-induced disorders | CPT/HCPCS: 11042 ==

== ENCOUNTER → 2019-08-01 | Outpatient (CLI) | payer MEDICARE, MEDICAID | LOC: WOUNDCARE 13:46 | PROVIDERS: ATTEND Orthopaedic Surgery Hand Surgery | DX: I96 Gangrene, not elsewhere classified (principal); L89.154 Pressure ulcer of sacral region, stage 4; T65.222A Toxic effect of tobacco cigarettes, intentional self-harm, initial encounter; F17.218 Nicotine dependence, cigarettes, with other nicotine-induced disorders; L92.8 Other granulomatous disorders of the skin and subcutaneous tissue; G82.54 Quadriplegia, C5-C7 incomplete | CPT/HCPCS: 11042; 97605 ==

== ENCOUNTER → 2019-08-15 | Outpatient (CLI) | payer MEDICARE, MEDICAID ==
[~2019-08-15] MED LIST changes: +OMEP40CA27 PO; -SENN-233 PO; +SENN1TAB67 PO
== END ==
LOC: WOUNDCARE 13:25
PROVIDERS: ATTEND Orthopaedic Surgery Hand Surgery
DX: L89.154 Pressure ulcer of sacral region, stage 4 (principal); G82.54 Quadriplegia, C5-C7 incomplete; T65.222A Toxic effect of tobacco cigarettes, intentional self-harm, initial encounter; F17.218 Nicotine dependence, cigarettes, with other nicotine-induced disorders
CPT/HCPCS: 11042; 97605

== ENCOUNTER → 2019-09-03 | Outpatient (CLI) | payer MEDICARE, MEDICAID | LOC: WOUNDCARE 13:50 | PROVIDERS: ATTEND Preventive Medicine Undersea and Hyperbaric Medicine | DX: L89.154 Pressure ulcer of sacral region, stage 4 (principal); G82.54 Quadriplegia, C5-C7 incomplete; T65.222A Toxic effect of tobacco cigarettes, intentional self-harm, initial encounter; F17.218 Nicotine dependence, cigarettes, with other nicotine-induced disorders | CPT/HCPCS: 11042 ==

== ENCOUNTER → 2019-09-12 | Outpatient (CLI) | payer MEDICARE, MEDICAID | LOC: WOUNDCARE 13:50 | PROVIDERS: ATTEND Orthopaedic Surgery Hand Surgery | DX: L89.154 Pressure ulcer of sacral region, stage 4 (principal); L89.513 Pressure ulcer of right ankle, stage 3; G82.54 Quadriplegia, C5-C7 incomplete; T65.222A Toxic effect of tobacco cigarettes, intentional self-harm, initial encounter; F17.218 Nicotine dependence, cigarettes, with other nicotine-induced disorders | CPT/HCPCS: 11042 ==

== ENCOUNTER → 2019-09-19 | Outpatient (CLI) | payer MEDICARE, MEDICAID ==
[~2019-09-19] MED LIST changes: -MAGN800O PO; +MOM10U PO
== END ==
LOC: WOUNDCARE 13:57
PROVIDERS: ATTEND Orthopaedic Surgery Hand Surgery
DX: L89.154 Pressure ulcer of sacral region, stage 4 (principal); G82.54 Quadriplegia, C5-C7 incomplete; T65.222A Toxic effect of tobacco cigarettes, intentional self-harm, initial encounter; L89.513 Pressure ulcer of right ankle, stage 3; I96 Gangrene, not elsewhere classified; F17.218 Nicotine dependence, cigarettes, with other nicotine-induced disorders
CPT/HCPCS: 11042

== ENCOUNTER → 2019-10-03 | Outpatient (CLI) | payer MEDICARE, MEDICAID ==
[~2019-10-03] MED LIST changes: +ACHD5005 PO; +HYDR-34 PO; -HYDR-3812 PO; -HYDR-3816 PO
== END ==
LOC: WOUNDCARE 13:58
PROVIDERS: ATTEND Surgery
DX: L89.154 Pressure ulcer of sacral region, stage 4 (principal); G82.54 Quadriplegia, C5-C7 incomplete; T65.222A Toxic effect of tobacco cigarettes, intentional self-harm, initial encounter; L89.513 Pressure ulcer of right ankle, stage 3; L92.8 Other granulomatous disorders of the skin and subcutaneous tissue; I96 Gangrene, not elsewhere classified; F17.218 Nicotine dependence, cigarettes, with other nicotine-induced disorders
CPT/HCPCS: 17250

== ENCOUNTER → 2019-10-10 | Outpatient (CLI) | payer MEDICARE, MEDICAID | LOC: WOUNDCARE 13:39 | PROVIDERS: ATTEND Surgery | DX: L89.153 Pressure ulcer of sacral region, stage 3 (principal); G82.54 Quadriplegia, C5-C7 incomplete; T65.222A Toxic effect of tobacco cigarettes, intentional self-harm, initial encounter; F17.218 Nicotine dependence, cigarettes, with other nicotine-induced disorders | CPT/HCPCS: 99213 ==

== ENCOUNTER → 2020-05-19 | Outpatient (CLI) | payer MEDICARE, MEDICAID ==
[~2020-05-19] MED LIST changes: +MULT-567 PO; -MULT1TAB69 PO
== END ==
LOC: WOUNDCARE 09:30
PROVIDERS: ATTEND Surgery
DX: L89.150 Pressure ulcer of sacral region, unstageable (principal); L89.510 Pressure ulcer of right ankle, unstageable; G82.21 Paraplegia, complete; T65.222A Toxic effect of tobacco cigarettes, intentional self-harm, initial encounter; F17.218 Nicotine dependence, cigarettes, with other nicotine-induced disorders; E44.1 Mild protein-calorie malnutrition

== ENCOUNTER → 2020-06-03 | Outpatient (CLI) | payer MEDICARE, MEDICAID | LOC: WOUNDCARE 10:02 | PROVIDERS: ATTEND Surgery | DX: I96 Gangrene, not elsewhere classified (principal); L89.153 Pressure ulcer of sacral region, stage 3; L89.513 Pressure ulcer of right ankle, stage 3; G82.20 Paraplegia, unspecified; E44.1 Mild protein-calorie malnutrition | CPT/HCPCS: A6196; A6212; G0463; 99213 ==

== ENCOUNTER → 2020-06-11 | Outpatient (CLI) | payer MEDICARE, MEDICAID | LOC: WOUNDCARE 11:09 | PROVIDERS: ATTEND Surgery | DX: I96 Gangrene, not elsewhere classified (principal); L89.513 Pressure ulcer of right ankle, stage 3; L89.150 Pressure ulcer of sacral region, unstageable; G82.21 Paraplegia, complete; E44.1 Mild protein-calorie malnutrition ==

== ENCOUNTER → 2020-06-18 | Outpatient (CLI) | payer MEDICARE, MEDICAID | LOC: WOUNDCARE 11:30 | PROVIDERS: ATTEND Surgery | DX: L89.150 Pressure ulcer of sacral region, unstageable (principal); L89.513 Pressure ulcer of right ankle, stage 3; G82.21 Paraplegia, complete; E44.1 Mild protein-calorie malnutrition; I96 Gangrene, not elsewhere classified ==

== ENCOUNTER → 2020-07-16 | Outpatient (CLI) | payer MEDICARE, MEDICAID | LOC: WOUNDCARE 11:30 | PROVIDERS: ATTEND Surgery | DX: I96 Gangrene, not elsewhere classified (principal); L89.893 Pressure ulcer of other site, stage 3; L89.150 Pressure ulcer of sacral region, unstageable; L89.513 Pressure ulcer of right ankle, stage 3; G82.21 Paraplegia, complete; E44.1 Mild protein-calorie malnutrition ==

== ENCOUNTER → 2020-07-23 | Outpatient (CLI) | payer MEDICARE, MEDICAID | LOC: WOUNDCARE 11:37 | PROVIDERS: ATTEND Surgery | DX: L89.150 Pressure ulcer of sacral region, unstageable (principal); L89.513 Pressure ulcer of right ankle, stage 3; L89.893 Pressure ulcer of other site, stage 3; G82.21 Paraplegia, complete; E44.1 Mild protein-calorie malnutrition; I96 Gangrene, not elsewhere classified ==

== ENCOUNTER → 2020-08-21 | Outpatient (CLI) | payer MEDICARE, MEDICAID | LOC: WOUNDCARE 11:30 | PROVIDERS: ATTEND Surgery | DX: I96 Gangrene, not elsewhere classified (principal); L89.150 Pressure ulcer of sacral region, unstageable; G82.21 Paraplegia, complete ==

== ENCOUNTER 2020-12-24 13:41 | Emergency (ER) | payer MEDICARE, MEDICAID ==
[~2020-12-24] VITALS: Ht 162 cm; Wt 68.0 kg
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
[2020-12-24 14:09] LABS: BILIRUBIN,URINE NEGATIVE (NEGATIVE); CLARITY,URINE CLOUDY; COLOR,URINE YELLOW; GLUCOSE, URINE (UA) NEGATIVE (NEGATIVE); KETONES,URINE TRACE (NEGATIVE); LEUKOCYTE ESTERASE ,URINE 2+ (NEGATIVE); NITRITE,URINE POSITIVE (NEGATIVE); PROTEIN,URINE TRACE (NEGATIVE)
[2020-12-24 14:25] LABS: BACTERIA,URINE MODERATE /HPF; WBC,URINE 25-50 /HPF
[2020-12-24 14:26] LABS: YEAST,URINE FEW /HPF
[2020-12-24] MEDS ORDERED: LIDOCAINE 1% INJ 20 ML 20 ML VIAL ONE (14:58)
[2020-12-24] MEDS ORDERED: CEFEPIME 1 GM/10 ML (MAXIPIME) VIAL IM ONE (15:00)
[2020-12-24] MEDS ORDERED: CEFEPIME INJECTION 1,000 MG in NS (IVPB) 50 ML IM ONE (15:00)
[2020-12-24 15:45] VITALS: BP 126/83
== END 2020-12-24 15:45 | disposition home or self-care (01) ==
LOC: EDUNIT# 13:41 → ER 13:42
DX: N39.0 Urinary tract infection, site not specified (principal); E03.9 Hypothyroidism, unspecified; F32.9 Major depressive disorder, single episode, unspecified; Z79.890 Hormone replacement therapy; Z87.820 Personal history of traumatic brain injury; Z79.899 Other long term (current) drug therapy
CPT/HCPCS: 81000; 87077; 87088; 99284

== ENCOUNTER 2020-12-26 13:03 | Outpatient (RCR) | payer MEDICARE, MEDICAID ==
[2020-12-25] MEDS: LIDOCAINE 1% INJ 20 ML 20 ML VIAL IJ SCH (16:09)
[2020-12-25] MEDS: CEFEPIME 1 GM/10 ML (MAXIPIME) VIAL IM SCH (16:09)
[2020-12-25 16:15] VITALS: BP 167/106
[~2020-12-26] VITALS: Ht 162.6 cm; Wt 68.0 kg
[~2020-12-26 13:03] MED LIST changes: -OMEP40CA27 PO; +OMEP40CA6 PO
[2020-12-26 13:18] VITALS: BP 131/86
[2020-12-26] MEDS: CEFEPIME 1 GM/10 ML (MAXIPIME) VIAL IM SCH (13:18)
[2020-12-26] MEDS: LIDOCAINE 1% INJ 20 ML 20 ML VIAL IJ SCH (13:19)
[2020-12-26 13:58] LABS: BILIRUBIN,URINE NEGATIVE (NEGATIVE); CLARITY,URINE CLEAR; COLOR,URINE YELLOW; GLUCOSE, URINE (UA) NEGATIVE (NEGATIVE); KETONES,URINE NEGATIVE (NEGATIVE); LEUKOCYTE ESTERASE ,URINE TRACE (NEGATIVE); NITRITE,URINE POSITIVE (NEGATIVE); PROTEIN,URINE NEGATIVE (NEGATIVE)
[2020-12-26 14:20] LABS: BACTERIA,URINE FEW /HPF; SQUAMOUS EPITHELIAL CELL,UR 25-50 /HPF
[2020-12-27 12:57] VITALS: BP 168/110
[2020-12-27] MEDS: CEFEPIME 1 GM/10 ML (MAXIPIME) VIAL IM SCH (13:24)
[2020-12-27] MEDS: LIDOCAINE 1% INJ 20 ML 20 ML VIAL IJ SCH (13:24)
[2021-02-02] MEDS ORDERED: SUCR1TAB36 PO (14:30)
[2021-02-02] MEDS ORDERED: PANT20TA18 PO (14:30)
== END 2021-03-25 | disposition home or self-care (01) ==
LOC: SDC 13:03
PROVIDERS: ATTEND Nurse Practitioner Family
DX: N39.0 Urinary tract infection, site not specified (principal)
CPT/HCPCS: 81000; 87088; 96372

== ENCOUNTER 2021-01-12 06:13 | Emergency (ER) | payer MEDICARE, MEDICAID ==
[2021-01-12 06:27] VITALS: BP 177/100
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
[2021-01-12] MEDS ORDERED: CEFEPIME INJECTION 1,000 MG in WATER (STERILE) FOR INJECTION 10 ML IV ONE (07:00)
[2021-01-12] MEDS ORDERED: CEFEPIME 1 GM/10 ML (MAXIPIME) VIAL ONE (07:03)
[2021-01-12] MEDS ORDERED: LIDOCAINE 1% INJ 20 ML 20 ML VIAL ONE (07:04)
== END 2021-01-12 07:28 | disposition home or self-care (01) ==
LOC: EDUNIT# 06:13 → ER 06:14
DX: N39.0 Urinary tract infection, site not specified (principal); E03.9 Hypothyroidism, unspecified; F32.9 Major depressive disorder, single episode, unspecified; F17.210 Nicotine dependence, cigarettes, uncomplicated; Z87.820 Personal history of traumatic brain injury; Z79.890 Hormone replacement therapy; Z79.899 Other long term (current) drug therapy
CPT/HCPCS: 99284

== ENCOUNTER → 2021-01-12 07:36 | Outpatient (RCR) | payer MEDICARE, MEDICAID ==
[~2021-01-12] VITALS: Ht 162 cm; Wt 53.0 kg
[~2021-01-12 07:36] MED LIST changes: +CEFEPIME 1 GM/10 ML (MAXIPIME) VIAL IV SCH; +LIDOCAINE 1% INJ 20 ML 20 ML VIAL INJ SCH
[2021-01-12 17:34] VITALS: BP 134/64
== END | disposition home or self-care (01) ==
LOC: 4THo 07:36
PROVIDERS: ATTEND Family Medicine
DX: N39.0 Urinary tract infection, site not specified (principal)
CPT/HCPCS: 96372

== ENCOUNTER 2021-02-02 12:27 | Emergency (ER) | payer MEDICARE, MEDICAID ==
[~2021-02-02] VITALS: Ht 167 cm; Wt 53.0 kg
[~2021-02-02 12:27] MED LIST changes: -CEFEPIME 1 GM/10 ML (MAXIPIME) VIAL IV SCH; -LIDOCAINE 1% INJ 20 ML 20 ML VIAL INJ SCH
[2021-02-02] MEDS ORDERED: FAMOTIDINE 20MG/2ML IV (PEPCID) IV STA (12:37)
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
[2021-02-02] MEDS ORDERED: NS IV 1000 ML 1,000 ML IV SCH (12:45)
[2021-02-02] MEDS ORDERED: ANTACID SUSP 30 ML UDC (MYLANTA) PO ONE ×2 (12:45→14:30)
[2021-02-02] MEDS ORDERED: LIDOCAINE 2% VISCOUS 15 ML UDC PO ONE (12:45)
[2021-02-02 12:55] LABS: BASOPHILS % (AUTO) 1 % (0-10); EOSINOPHILS # (AUTO) 0.3 10^3/uL (0.0-0.3); EOSINOPHILS % (AUTO) 4 % (0-10); HEMATOCRIT 46 % (35-52); HEMOGLOBIN 14.8 g/dL (11.5-16.0); LYMPHOCYTES # (AUTO) 2.8 10^3/uL (1.0-4.0); LYMPHOCYTES % (AUTO) 33 % (12-44); MEAN CORPUSCULAR HEMOGLOBIN 31 pg (25-34); MEAN CORPUSCULAR HGB CONC 32 g/dL (32-36); MEAN CORPUSCULAR VOLUME 96 fL (80-99); MEAN PLATELET VOLUME 10.9 fL (9.0-12.2); MONOCYTES # (AUTO) 0.6 10^3/uL (0.0-1.0); MONOCYTES % (AUTO) 7 % (0-12); NEUTROPHILS # (AUTO) 4.5 10^3/uL (1.8-7.8); NEUTROPHILS % (AUTO) 55 % (42-75); PLATELET COUNT 222 10^3/uL (130-400); WHITE BLOOD COUNT 8.2 10^3/uL (4.3-11.0)
[2021-02-02 12:56] LABS: BILIRUBIN,URINE NEGATIVE (NEGATIVE); CLARITY,URINE CLEAR; COLOR,URINE YELLOW; GLUCOSE, URINE (UA) NEGATIVE (NEGATIVE); KETONES,URINE NEGATIVE (NEGATIVE); LEUKOCYTE ESTERASE ,URINE NEGATIVE (NEGATIVE); NITRITE,URINE NEGATIVE (NEGATIVE); PH,URINE 6.5 (5-9); PROTEIN,URINE NEGATIVE (NEGATIVE)
[2021-02-02 13:07] LABS: ALBUMIN 4.3 GM/DL (3.2-4.5); CHLORIDE 104 MMOL/L (98-107); POTASSIUM 3.9 MMOL/L (3.6-5.0)
[2021-02-02 13:08] LABS: SODIUM 140 MMOL/L (135-145)
[2021-02-02 13:09] LABS: CALCIUM 9.8 MG/DL (8.5-10.1)
[2021-02-02 13:10] LABS: GLUCOSE 103 MG/DL (70-105); TOTAL PROTEIN 7.8 GM/DL (6.4-8.2)
[2021-02-02 13:11] LABS: CARBON DIOXIDE 26 MMOL/L (21-32)
[2021-02-02 13:12] LABS: BILIRUBIN,TOTAL 0.3 MG/DL (0.1-1.0)
[2021-02-02 13:13] LABS: ALKALINE PHOSPHATASE 80 U/L (40-136)
[2021-02-02 13:14] LABS: CREATININE SERUM 0.63 MG/DL (0.60-1.30); GFR ESTIMATED > 60
[2021-02-02 13:15] LABS: BUN/CREATININE RATIO 29
[2021-02-02 13:16] LABS: ALANINE AMINOTRANSFERASE 16 U/L (0-55)
[2021-02-02 13:17] LABS: LIPASE 34 U/L (8-78)
[2021-02-02 13:26] LABS: AMORPHOUS SEDIMENT,UR RARE AMOR URATES /LPF; BACTERIA,URINE NEGATIVE /HPF; SQUAMOUS EPITHELIAL CELL,UR >50 /HPF
[2021-02-02] MEDS ORDERED: HOLD METFORMIN - RECEIVED CONTRAST 20 ML VIAL IV SCH (13:30)
[2021-02-02] MEDS ORDERED: CATHETER FLUSH 10 ML SYR IV PRN (13:30)
[2021-02-02] MEDS ORDERED: NS 100 ML (IVPB) BAG IV ONE (13:30)
[2021-02-02] MEDS ORDERED: IOHEXOL 350 MG/ML 100 ML (OMNIPAQUE 350) VIAL IV ONE (13:30)
--- NOTE | 2021-02-02 14:12 | Diagnostic Imaging Report ---
PROCEDURE: CT abdomen and pelvis with contrast. TECHNIQUE: Multiple contiguous axial images were obtained through the abdomen and pelvis after administration of intravenous contrast. Auto Exposure Controls were utilized during the CT exam to meet ALARA standards for radiation dose reduction. All CT scans use one or more of the following dose optimizing techniques: automated exposure control, MA and/or KvP adjustment based on patient size and exam type or iterative reconstruction. INDICATION: Increasing abdominal pain. Comparison is made with CT cystogram from 05/10/2018. The lung bases are clear. No discrete liver mass identified. There is a stone in the gallbladder. No biliary duct dilatation is seen. Pancreas and spleen are unremarkable. No adrenal mass is detected. Kidneys are unremarkable. Aorta is nonaneurysmal. Bowel loops are unremarkable. There is no free fluid or fluid collection. Bladder is diffusely thick-walled. 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 No definite contrast within the tract or within the subcutis tissues is identified on today's study. There is moderate stool throughout the rectum and sigmoid. No definite abdominal or pelvic lymphadenopathy is seen. IMPRESSION: 1. Cholelithiasis. 2. Moderate stool in the colon. 3. No vesicocutaneous fistula tract is identified on today's study but no definite contrast within the tract is seen. 4. Moderate stool in the colon suggesting constipation. Dictated by: Dictated on workstation # [id number]
[2021-02-02] MEDS ORDERED: PANT20TA18 PO (14:30)
[2021-02-02] MEDS ORDERED: PANTOPRAZOLE 20 MG TABLET (PROTONIX) PO ONE (14:30)
[2021-02-02] MEDS ORDERED: SUCR1TAB36 PO (14:30)
[2021-02-02 15:43] VITALS: BP 177/107
== END 2021-02-02 14:40 | disposition home or self-care (01) ==
LOC: EDUNIT# 12:27 → ER 12:29
DX: K80.20 Calculus of gallbladder without cholecystitis without obstruction (principal); K29.70 Gastritis, unspecified, without bleeding; E03.9 Hypothyroidism, unspecified; F32.9 Major depressive disorder, single episode, unspecified; Z87.820 Personal history of traumatic brain injury; Z79.890 Hormone replacement therapy; Z79.899 Other long term (current) drug therapy
CPT/HCPCS: 36415; 51701; 74177; 80053; 81000; 83690; 85025; 86141; 96361; 96374

== ENCOUNTER 2021-05-11 05:55 | Outpatient (CLI) | payer MEDICARE, MEDICAID ==
[~2021-05-11] VITALS: Ht 162.6 cm; Wt 53.0 kg
[~2021-05-11 05:55] MED LIST changes: -DOXY100C2 PO; +DOXY100C5 PO; +PANT20TA18 PO; +SUCR1TAB36 PO
== END 2021-05-15 13:38 | disposition home or self-care (01) ==
LOC: PREOP 05:55
PROVIDERS: ATTEND Surgery
DX: Z01.818 Encounter for other preprocedural examination (principal)

== ENCOUNTER 2021-05-18 10:28 | Day surgery (SDC) | payer MEDICARE, MEDICAID ==
[~2021-05-18] VITALS: Ht 162.6 cm; Wt 53.0 kg
[2021-05-18] MEDS ORDERED: LACTATED RINGERS 1,000 ML IV STA (10:29)
[2021-05-18] MEDS ORDERED: LACTATED RINGERS 1,000 ML IV ONE (10:39)
[2021-05-18 11:25] VITALS: BP 153/95
--- NOTE | 2021-05-18 11:55 | Progress Note-Pre Operative ---
Pre-Operative Progress Note H&P Reviewed The H&P was reviewed, patient examined and no changes noted. Time Seen by Provider: 11:53 Date H&P Reviewed: May 18, 2021 Time H&P Reviewed: 11:53 Pre-Operative Diagnosis: Rectal bleed RACHAEL PEREZ DO May 18, 2021 11:54
[2021-05-18] MEDS ORDERED: MIDAZOLAM 2 MG/2 ML (VERSED) VIAL ONE (12:14)
[2021-05-18] MEDS ORDERED: proPOfol 200 MG/20 ML (DIPRIVAN) VIAL IV ONE (12:15)
[2021-05-18 13:05] VITALS: BP 112/62
[2021-05-18 13:10] VITALS: BP 110/60
--- NOTE | 2021-05-18 13:11 | Progress Note-Post Operative ---
Post-Operative Progess Note Surgeon (s)/Automobile Insurance Claim Examiner (s) Surgeon RACHAEL PEREZ DO Automobile Insurance Claim Examiner: none Pre-Operative Diagnosis Rectal bleed Post-Operative Diagnosis Polyps Int hemorrhoids Procedure & Operative Findings Date of Procedure 05/18/21 Procedure Performed/Findings Colon with hot bx PROCEDURE NOTE: After informed consent was obtained, the patient was brought to the endoscopy suite, placed in bed in left lateral decubitus position. She was administered IV sedation by the BASTING MARKER who then monitored her vitals the entire time, heart rate, blood pressure and pulse ox and the scope was inserted, pushed all the way to about 140 cm and pushed into the cecum, took a picture of appendiceal orifice and then slowly withdrew the scope insufflating to look circumferentially at the beebe starting in the cecum, up the ascending colon to the hepatic flexure, then down the transverse colon, splenic flexure, into the descending colon. In the descending colon saw a large flat polyp, had a very hard time getting a biopsy. Finally able to get a hot biopsy; 3 pieces. Next continued down to the sigmoid and then into the rectum. Saw another couple of polyps here and did 2 more hot biopsies. Once in the rectal vault, retroflexed the scope and took a picture of the internal hemorrhoids. The patient tolerated the procedure. She was recovered in endoscopy suite. Anesthesia Type IV sedation by BASTING MARKER Estimated Blood Loss Estimated blood loss (mL): scant Specimens/Packing Specimens Removed Desc colon polyp rectal polyp x 2 RACHAEL PEREZ DO May 18, 2021 13:11
--- NOTE | 2021-05-18 13:12 | Endoscopy Discharge Instruct ---
Endo Procedure/Findings Findings 1.: Polyp 2.: Internal Hemorrhoids Discharge Instructions - Activity: You might feel a little sleepy until tomorrow. This is due to the medicine you received to relax you. Until tomorrow, you should: NOT drive a car, operate machinery or power tools. NOT drink any alcoholic beverages. NOT make any important decisions or sign importortant papers. Do not return to work until tomorrow, unless otherwise instructed. Resume previous activities tomorrow. Diet: Start by taking liquids. If you tolerate liquids, advance to solid food. 1.: Colonscopy in 5 years Notify Physician - If you experience excessive bleeding, unusual abdominal pain, fever, or chest pain, contact your doctor immediately. RACHAEL PEREZ DO May 18, 2021 13:12
[2021-05-18 13:15] VITALS: BP 118/66
[2021-05-18 13:20] VITALS: BP 118/66
--- NOTE | 2021-05-18 13:24 | Anesthesia-General Post-Op ---
MAC Patient Condition Mental Status/LOC: Same as Preop Cardiovascular: Satisfactory Nausea/Vomiting: Absent Respiratory: Satisfactory Pain: Controlled Complications: Absent Post Op Complications Complications None Follow Up Care/Instructions Patient Instructions None needed. Anesthesiology Discharge Order Discharge Order Patient is doing well, no complaints, stable vital signs, no apparent adverse anesthesia problems. No complications reported per nursing. ROBERT RODRIGES CRNA May 18, 2021 13:24
[2021-05-18 13:38] VITALS: BP 115/65
== END 2021-05-18 13:50 | disposition home or self-care (01) ==
LOC: ENDO 10:28
PROVIDERS: ATTEND Surgery
DX: D12.4 Benign neoplasm of descending colon (principal); K62.1 Rectal polyp; K64.8 Other hemorrhoids; E78.5 Hyperlipidemia, unspecified; G82.50 Quadriplegia, unspecified; K21.9 Gastro-esophageal reflux disease without esophagitis; E07.9 Disorder of thyroid, unspecified; F17.210 Nicotine dependence, cigarettes, uncomplicated; Z87.820 Personal history of traumatic brain injury; Z79.890 Hormone replacement therapy; Z79.899 Other long term (current) drug therapy

== ENCOUNTER 2022-03-22 11:49 | Outpatient (CLI) | payer MEDICARE, MEDICAID ==
[~2022-03-22] VITALS: Ht 162.6 cm; Wt 66.8 kg
[~2022-03-22 11:49] MED LIST changes: -AMAN100C18 PO; +AMAN100C20 PO
[2022-03-24] MEDS ORDERED: LISI20TA26 PO (12:48)
[2022-03-24] MEDS ORDERED: PANT20TA18 PO (12:48)
[2022-03-24] MEDS ORDERED: ATOR10TA66 PO (12:48)
[2022-03-24] MEDS ORDERED: ACET-93 PO (12:48)
[2022-03-24] MEDS ORDERED: ROPI0.253 PO (12:48)
[2022-03-24] MEDS ORDERED: METH1TAB21 PO (12:56)
[2022-03-24] MEDS ORDERED: SERT-414 PO (12:56)
[2022-03-24] MEDS ORDERED: PHEN95TA30 PO (12:56)
== END 2022-03-24 13:09 | disposition home or self-care (01) ==
LOC: PREOP 11:49
PROVIDERS: ATTEND Orthopaedic Surgery
DX: Z01.818 Encounter for other preprocedural examination (principal); M75.102 Unspecified rotator cuff tear or rupture of left shoulder, not specified as traumatic

== ENCOUNTER 2022-07-25 12:49 | Emergency (ER) | payer MEDICARE, MEDICAID ==
[~2022-07-25] VITALS: Ht 162 cm; Wt 70.0 kg
[~2022-07-25 12:49] MED LIST changes: +ACET-93 PO; +ATOR10TA66 PO; +LISI20TA26 PO; +METH1TAB21 PO; +PHEN95TA30 PO; +ROPI0.253 PO; +SERT-414 PO
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
[2022-07-25] MEDS ORDERED: NS IV 1000 ML 1,000 ML IV STA (13:06)
[2022-07-25 13:19] LABS: BASOPHILS % (AUTO) 0 % (0-10); EOSINOPHILS # (AUTO) 0.5 10^3/uL (0.0-0.3); EOSINOPHILS % (AUTO) 4 % (0-10); HEMATOCRIT 39 % (35-52); HEMOGLOBIN 11.9 g/dL (11.5-16.0); LYMPHOCYTES # (AUTO) 1.4 10^3/uL (1.0-4.0); LYMPHOCYTES % (AUTO) 12 % (12-44); MEAN CORPUSCULAR HEMOGLOBIN 29 pg (25-34); MEAN CORPUSCULAR HGB CONC 31 g/dL (32-36); MEAN CORPUSCULAR VOLUME 95 fL (80-99); MEAN PLATELET VOLUME 10.3 fL (9.0-12.2); MONOCYTES # (AUTO) 0.8 10^3/uL (0.0-1.0); MONOCYTES % (AUTO) 6 % (0-12); NEUTROPHILS # (AUTO) 9.3 10^3/uL (1.8-7.8); NEUTROPHILS % (AUTO) 77 % (42-75); PLATELET COUNT 231 10^3/uL (130-400); WHITE BLOOD COUNT 12.1 10^3/uL (4.3-11.0)
[2022-07-25 13:27] LABS: ALBUMIN 3.5 GM/DL (3.2-4.5); CHLORIDE 104 MMOL/L (98-107); POTASSIUM 4.4 MMOL/L (3.6-5.0); SODIUM 141 MMOL/L (135-145)
[2022-07-25 13:28] LABS: CALCIUM 9.7 MG/DL (8.5-10.1)
[2022-07-25 13:29] LABS: GLUCOSE 100 MG/DL (70-105); INR 0.9 (0.8-1.4); TOTAL PROTEIN 7.5 GM/DL (6.4-8.2)
[2022-07-25 13:31] LABS: BILIRUBIN,TOTAL 0.3 MG/DL (0.1-1.0); CARBON DIOXIDE 27 MMOL/L (21-32)
[2022-07-25 13:33] LABS: ALKALINE PHOSPHATASE 109 U/L (40-136); CREATININE SERUM 0.78 MG/DL (0.60-1.30); GFR ESTIMATED 87
[2022-07-25 13:34] LABS: BUN/CREATININE RATIO 33
[2022-07-25 13:36] LABS: ALANINE AMINOTRANSFERASE 21 U/L (0-55)
--- NOTE | 2022-07-25 13:43 | Diagnostic Imaging Report ---
EXAM: CHEST 1 VIEW, AP/PA ONLY INDICATION: Altered mental status. Shortness of breath. COMPARISON: Chest radiograph 02/26/2019. FINDINGS: Normal heart size and central pulmonary vascularity. Atelectasis or infiltrate in the medial right lung base. No pleural effusion or pneumothorax. No acute osseous findings. IMPRESSION: Mild atelectasis or infiltrate in the medial right lung base. Dictated by: Dictated on workstation # [id number]
[2022-07-25 13:58] LABS: BILIRUBIN,URINE NEGATIVE (NEGATIVE); CLARITY,URINE CLOUDY; COLOR,URINE YELLOW; GLUCOSE, URINE (UA) NEGATIVE (NEGATIVE); KETONES,URINE TRACE (NEGATIVE); LEUKOCYTE ESTERASE ,URINE 3+ (NEGATIVE); NITRITE,URINE NEGATIVE (NEGATIVE); PH,URINE 7.5 (5-9); PROTEIN,URINE 2+ (NEGATIVE)
[2022-07-25 14:22] LABS: WBC,URINE >100 /HPF
[2022-07-25 14:23] LABS: BACTERIA,URINE LARGE /HPF; SQUAMOUS EPITHELIAL CELL,UR RARE /HPF
[2022-07-25] MEDS ORDERED: cefTRIAXone 1 GM PRE-MIX 50 ML IV ONE (14:45)
[2022-07-25] MEDS ORDERED: CEFD300C3 PO (14:56)
[2022-07-25 16:00] VITALS: BP 114/72
== END 2022-07-25 16:00 | disposition home or self-care (01) ==
LOC: EDUNIT# 12:49 → ER 12:50
DX: N39.0 Urinary tract infection, site not specified (principal); I10 Essential (primary) hypertension; I95.9 Hypotension, unspecified
CPT/HCPCS: 36415; 51701; 71045; 80053; 81000; 83605; 84145; 84484; 85025; 85610; 85730; 87040; 87077; 87088; 93005

== ENCOUNTER → 2022-08-04 | Outpatient (CLI) | payer MEDICARE, MEDICAID ==
[~2022-08-04] MED LIST changes: +HOLD METFORMIN - RECEIVED CONTRAST 20 ML VIAL IV SCH; +IOHEXOL 350 MG/ML 100 ML (OMNIPAQUE 350) VIAL IV ONE; +NS 100 ML (IVPB) BAG IV ONE
--- NOTE | 2022-08-04 14:44 | Diagnostic Imaging Report ---
PROCEDURE: CT angiography of the chest with contrast. TECHNIQUE: Multiple contiguous axial images were obtained through the chest after uneventful bolus administration of intravenous contrast. 3D reconstructed CTA MIP acquisitions were also performed. Auto Exposure Controls were utilized during the CT exam to meet ALARA standards for radiation dose reduction. INDICATION: Elevated d-dimer and dyspnea There is good opacification of pulmonary arteries without evidence of filling defect. Thoracic aorta is not well opacified but appears be of normal caliber with mild atherosclerotic disease present. There are prominent interstitial markings throughout the lungs which could represent mild edema or pneumonitis versus background fibrosis. There is left basilar atelectasis and/or pneumonitis. No significant pleural or pericardial fluid is identified. No pathologically enlarged adenopathy is identified. Note is made of lamellated stone within the lumen of the gallbladder. IMPRESSION: No CTA evidence of pulmonary embolism. There is evidence of probable background COPD with possible mild interstitial edema and/or pneumonitis, bilaterally. Dictated by: Dictated on workstation # [id number]
== END ==
LOC: RAD 14:00
PROVIDERS: ATTEND Nurse Practitioner Family
DX: R06.00 Dyspnea, unspecified (principal); R79.1 Abnormal coagulation profile
CPT/HCPCS: 71275

== ENCOUNTER → 2022-08-04 | Outpatient (CLI) | payer MEDICARE, MEDICAID ==
[~2022-08-04] MED LIST changes: -HOLD METFORMIN - RECEIVED CONTRAST 20 ML VIAL IV SCH; -IOHEXOL 350 MG/ML 100 ML (OMNIPAQUE 350) VIAL IV ONE; -NS 100 ML (IVPB) BAG IV ONE
--- NOTE | 2022-08-04 10:01 | Diagnostic Imaging Report ---
EXAM: CHEST PA/LAT (2 VIEW) INDICATION: Dyspnea. COMPARISON: Chest radiograph 07/25/2022. FINDINGS: Normal heart size and central pulmonary vascularity. Mild atelectasis or infiltrate in the left lung base. No pleural effusion or pneumothorax. No acute osseous findings. IMPRESSION: Mild atelectasis or infiltrate in the left lung base. Remainder unremarkable. Dictated by: Dictated on workstation # [id number]
[2022-08-04 10:42] LABS: HEMATOCRIT 40 % (35-52); HEMOGLOBIN 12.3 g/dL (11.5-16.0); MEAN CORPUSCULAR HEMOGLOBIN 29 pg (25-34); MEAN CORPUSCULAR HGB CONC 30 g/dL (32-36); MEAN CORPUSCULAR VOLUME 95 fL (80-99); MEAN PLATELET VOLUME 10.5 fL (9.0-12.2); PLATELET COUNT 192 10^3/uL (130-400); WHITE BLOOD COUNT 8.1 10^3/uL (4.3-11.0)
[2022-08-04 11:04] LABS: ALBUMIN 3.7 GM/DL (3.2-4.5); BILIRUBIN,TOTAL 0.3 MG/DL (0.1-1.0); CALCIUM 9.8 MG/DL (8.5-10.1); CREATININE SERUM 0.8 MG/DL (0.60-1.30); POTASSIUM 3.9 MMOL/L (3.6-5.0); TOTAL PROTEIN 7.6 GM/DL (6.4-8.2)
== END ==
LOC: RAD 09:31
PROVIDERS: ATTEND Nurse Practitioner Family
DX: J98.11 Atelectasis (principal)
CPT/HCPCS: 36415; 71046; 80053; 82140; 85027; 85379

== ENCOUNTER → 2022-11-17 | Outpatient (CLI) | payer MEDICARE, MEDICAID ==
--- NOTE | 2022-11-17 09:24 | Diagnostic Imaging Report ---
CLINICAL INDICATION: Patient headache, fatigue and dizziness and episodes of passing out. Exam: Axial CT scan of the brain without IV contrast with coronal and sagittal reformatted images. Auto Exposure Controls were utilized during the CT exam to meet ALARA standards for radiation dose reduction. Comparison: None Findings: There is no evidence of acute cerebral infarct, intracranial hemorrhage, or gross mass effect. There is brain parenchymal volume loss with frontal lobes affected the most. There is subtle patchy areas of low-attenuation white matter changes involving both cerebral hemispheres likely related to chronic small vessel ischemic disease. There is normal mohamud-white matter distinction. There is no significant midline shift or herniation. There is no evidence of hydrocephalus. The basal cisterns are unremarkable. The skull, extracranial soft tissue, and orbits are unremarkable. There is small amount of fluid involving the sphenoid sinus. Temporal bones show no significant abnormality. IMPRESSION: 1: There is no CT evidence of acute intracranial process. 2: There is brain parenchymal volume loss with the frontal lobes affected the most. 3: There is chronic small vessel ischemic disease. Dictated by: Dictated on workstation # [id number]
== END ==
LOC: RAD 07:51
PROVIDERS: ATTEND Nurse Practitioner Family
DX: I67.82 Cerebral ischemia (principal)
CPT/HCPCS: 70450